=== PATIENT | female | born 1990 | race Caucasian/White ===

== ENCOUNTER 2019-10-12 16:56 | Emergency (ER) | payer BC, SELFPAY ==
[2019-10-12 17:10] VITALS: BP 124/78; PULSE 132; RESP 18; TEMP 36.9; O2SAT 100
--- NOTE | 2019-10-12 17:26 | ED.EAR ---
HPI - Ear Problem General Chief complaint: Ear Stated complaint: Possibe ear infection Time Seen by Provider: 10/12/19 17:14 Source: patient and RN notes reviewed Mode of arrival: ambulatory Limitations: no limitations History of Present Illness HPI Narrative: Patient presents today complaining of severe left ear pain since 09/20/2019. She reports severe pressure, a pop, and clear drainage. Reports the drainage is now green. She also reports a headache and some dizziness. She called her PCP and discuss symptoms. States she was told that her symptoms are likely due to allergies or her multiple sclerosis and she was told to use a steroid nasal spray. They did not send in a prescription for this, and patient did not purchase it [id number]. Reports history of frequent otitis media. She has been taking Excedrin and Tylenol without relief. She currently rates her pain 4/10. Denies cough, fever, congestion, rhinorrhea, sore throat. MD Complaint: ear pain Related Data Allergies Allergy/AdvReac Type Severity Reaction Status Date / Time pineapple Allergy Intermediate Swelling Verified 04/23/19 21:58 ceftriaxone Allergy Unknown Rash Verified 10/12/19 17:15 Cephalosporins Allergy Unknown Rash Verified 10/12/19 17:15 codeine Allergy Unknown Rash Verified 10/12/19 17:15 morphine Allergy Unknown Rash Verified 10/12/19 17:15 shellfish derived Allergy Unknown Rash Verified 10/12/19 17:15 Sulfa (Sulfonamide Allergy Unknown Rash Verified 10/12/19 17:15 Antibiotics) CEFTRIAXONE SODIUM Allergy Mild Rash Uncoded 10/12/19 17:15 SHELLFISH Allergy Unknown RASH Uncoded 04/23/19 21:58 Review of Systems Review of Systems: Narrative: CONSTITUTIONAL: Denies body aches, fever, chills, or sweats. EYES: Denies visual changes, redness, or discharge. ENT: Denies rhinorrhea, congestion, sore throat. + Left ear pain and drainage CARDIOVASCULAR: Denies chest pain, palpitations, or edema. RESPIRATORY: Denies cough or dyspnea. GASTROINTESTINAL: Denies abdominal pain, nausea, vomiting, or diarrhea. GENITOURINARY: Denies dysuria or hematuria. SKIN: Denies rash, itching, or wounds. MUSCULOSKELETAL: Denies back pain, joint pain, or myalgia. NEUROLOGIC: Denies numbness, tingling, or weakness.+ Headache, dizziness PSYCH: Denies depression or anxiety. [facility] Past Medical History Medical History (Updated 10/12/19 @ 17:34 by Anna Perrin, SALES NEG[employer]IATOR, ) Multiple sclerosis Social History Social History Smoking status: Never smoker Alcohol intake: never Comments At time of signature, I have reviewed and agree with nursing past medical, surgical, social and family history unless otherwise noted. Please see nursing chart for further information. There is no relevant family history pertinent to the presenting complaint Exam Narrative: Exam Narrative: GENERAL: Well-appearing, well-nourished, and in no acute distress. HEAD: Normocephalic, atraumatic. EYES: EOMI. No redness or drainage. Conjunctivae normal. ENT: Mucous membranes pink and moist. Nares clear. No rhinorrhea. TMs normal bilaterally with bilateral clear fluid behind the TM. No evidence of rupture. No active drainage. Throat normal. Uvula midline. NECK: Normal AROM. Supple. No lymphadenopathy. CHEST: No respiratory distress. Clear to auscultation. HEART: Regular rate and rhythm. No murmur appreciated. Normal peripheral pulses. EXTREMITIES: Normal range of motion. No edema. SKIN: Warm, dry, no rash. NEURO: No focal deficits. Alert and oriented x3. Gait steady. PSYCH: Normal affect. No signs of depression or anxiety. Course Vital Signs Vital signs: Vital Signs Temperature 98.4 F 10/12/19 17:10 Pulse Rate 132 H 10/12/19 17:10 Respiratory Rate 18 10/12/19 17:10 Blood Pressure 124/78 10/12/19 17:10 Pulse Oximetry 100 10/12/19 17:10 Temperature 98.4 F 10/12/19 17:10 Pulse Rate 132 H 10/12/19 17:10 Respiratory Rate 18 10/12/19 17:10 Blood Pressure 124/
== END 2019-10-12 17:29 | disposition home or self-care (01) ==
PROVIDERS: Emergency Provider Nurse Practitioner; PCP Internal Medicine
DX: H69.93 Unspecified Eustachian tube disorder, bilateral (principal); G35 Multiple sclerosis; J45.909 Unspecified asthma, uncomplicated
CPT/HCPCS: 99213; G0463

== ENCOUNTER 2020-05-12 10:01 | Emergency (ER) | payer BC, SELFPAY ==
[2020-05-12 10:09] VITALS: BP 127/61; PULSE 81; RESP 16; TEMP 37.2; O2SAT 99
--- NOTE | 2020-05-12 10:34 | ED.EAR ---
HPI - Ear Problem General Chief complaint: Ear Stated complaint: Ear Pain Time Seen by Provider: 05/12/20 10:24 Source: patient and RN notes reviewed Mode of arrival: ambulatory Limitations: no limitations History of Present Illness HPI Narrative: Patient presents today complaining of left ear pain x1 week. States that she started with bilateral ear pain, but her right ear pain resolved and only the left ear pain remains. She does report some mild decreased hearing, but denies drainage. She denies any additional symptoms. Currently rates her pain 10 and has been taking Tylenol without relief. She has also tried decongestant and Flonase without relief. MD Complaint: ear pain and decreased hearing Related Data Allergies Allergy/AdvReac Type Severity Reaction Status Date / Time pineapple Allergy Intermediate Swelling Verified 04/23/19 21:58 ceftriaxone Allergy Unknown Rash Verified 10/12/19 17:15 Cephalosporins Allergy Unknown Rash Verified 10/12/19 17:15 codeine Allergy Unknown Hallucinati Verified 05/12/20 10:18 ng morphine Allergy Unknown Hallucinati Verified 05/12/20 10:18 ng shellfish derived Allergy Unknown Rash Verified 10/12/19 17:15 Sulfa (Sulfonamide Allergy Unknown Rash Verified 10/12/19 17:15 Antibiotics) CEFTRIAXONE SODIUM Allergy Mild Rash Uncoded 10/12/19 17:15 SHELLFISH Allergy Unknown RASH Uncoded 04/23/19 21:58 Review of Systems Review of Systems: Narrative: CONSTITUTIONAL: Denies body aches, fever, chills, or sweats. EYES: Denies visual changes, redness, or discharge. ENT: Denies rhinorrhea, congestion, sore throat. + Left ear pain CARDIOVASCULAR: Denies chest pain, palpitations, or edema. RESPIRATORY: Denies cough or dyspnea. GASTROINTESTINAL: Denies abdominal pain, nausea, vomiting, or diarrhea. GENITOURINARY: Denies dysuria or hematuria. SKIN: Denies rash, itching, or wounds. MUSCULOSKELETAL: Denies back pain, joint pain, or myalgia. NEUROLOGIC: Denies headache, numbness, tingling, or weakness. PSYCH: Denies depression or anxiety. [facility] Past Medical History Medical History (Updated 05/12/20 @ 10:38 by Anna Perrin, [employer], [place]) Multiple sclerosis Social History Social History Smoking status: Never smoker Alcohol intake: never Comments At time of signature, I have reviewed and agree with nursing past medical, surgical, social and family history unless otherwise noted. Please see nursing chart for further information. There is no relevant family history pertinent to the presenting complaint Exam Narrative: Exam Narrative: GENERAL: Well-appearing, well-nourished, and in no acute distress. HEAD: Normocephalic, atraumatic. EYES: EOMI. No redness or drainage. Conjunctivae normal. ENT: Mucous membranes pink and moist. Nares clear. No rhinorrhea. Bilateral TMs are injected and bulging with purulent material. throat normal. Uvula midline. NECK: Normal AROM. Supple. No lymphadenopathy. CHEST: No respiratory distress. Clear to auscultation. HEART: Regular rate and rhythm. No murmur appreciated. Normal peripheral pulses. MUSCULOSKELETAL: No bony tenderness. EXTREMITIES: Normal range of motion. No edema. SKIN: Warm, dry, no rash. Capillary refill normal. Normal skin turgor. NEURO: No focal deficits. Alert and oriented x3. Gait steady. PSYCH: Normal affect. No signs of depression or anxiety. Course Vital Signs Vital signs: Vital Signs Pulse Rate 81 05/12/20 10:09 Respiratory Rate 16 05/12/20 10:09 Blood Pressure 127/61 05/12/20 10:09 Pulse Oximetry 99 05/12/20 10:09 Pulse Rate 81 05/12/20 10:09 Respiratory Rate 16 05/12/20 10:09 Blood Pressure 127/61 05/12/20 10:09 Pulse Oximetry 99 05/12/20 10:09 Reviewed. Pt has been instructed to follow up with her PCP regarding her elevated blood pressure today. Medical Decision Making Differential Diagnosis Differential Diagnosis: Otitis media, otitis externa, ruptured TM, serous otitis, eu
== END 2020-05-12 10:40 | disposition home or self-care (01) ==
PROVIDERS: Emergency Provider Nurse Practitioner; PCP Internal Medicine
DX: H66.93 Otitis media, unspecified, bilateral (principal); G35 Multiple sclerosis
CPT/HCPCS: 99213; G0463

== ENCOUNTER 2020-10-11 08:29 | Outpatient (CLI) | payer BC, SELFPAY ==
--- NOTE | ~2020-10-11 | CT_ITS ---
EXAMINATION: CT pelvis wo con DATE: 10/11/2020 08:44 INDICATION: Coccygeal fracture TECHNIQUE: High resolution computed tomography (CT) of the pelvis was performed without intravenous c ontrast. Additional sagittal and coronal reconstructions were performed. Automated exposure control a nd iterative reconstruction technique were employed. The dose-length product was 515.31 mGy-cm. COMPARISON: 07/06/2018 FINDINGS: Small fat-containing umbilical hernia. Visualized portions of the bowels including the appendix are n ormal. Partially decompressed bladder, anteverted uterus and bilateral adnexa are unremarkable. No fr ee intraperitoneal gas or fluid in the pelvis. No pathologically enlarged pelvic or inguinal lymphade nopathy. Moderate L5-S1 disc height loss with likely central disc extrusion. Sacrum and coccyx are no rmal with no fracture. IMPRESSION: 1. Lumbosacral spondylosis with moderate disc L5-S1 disc height loss with likely disc extrusion. Norm al sacrum and coccyx. Reviewed, dictated and finalized at location A. IMPRESSION: 1. Lumbosacral spondylosis with moderate disc L5-S1 disc height loss with likel y disc extrusion. Normal sacrum and coccyx.
== END 2020-10-11 08:30 | disposition home or self-care (01) ==
PROVIDERS: PCP Internal Medicine; Visit Provider Nurse Practitioner
DX: S32.2XXA Fracture of coccyx, initial encounter for closed fracture (principal); M47.817 Spondylosis without myelopathy or radiculopathy, lumbosacral region; K42.9 Umbilical hernia without obstruction or gangrene
CPT/HCPCS: 72192

== ENCOUNTER 2021-02-25 02:42 | Emergency (ER) | payer BC, SELFPAY ==
--- NOTE | ~2021-02-25 | CT_ITS ---
EXAMINATION: CT abdomen pelvis wo con DATE: 02/25/2021 04:07 INDICATION: Left flank and left lower quadrant pain TECHNIQUE: Computed tomography (CT) of the abdomen and pelvis was performed without intravenous contr ast. The dose-length product was 1328.38 mGy-cm. Automated exposure control and iterative reconstruct ion technique were employed. COMPARISON: CT dated 10/11/2020 FINDINGS: Lung bases are unremarkable. Heart size normal. No significant pleural or pericardial effus ion. No vascular abnormality. No lymphadenopathy. The liver, spleen, pancreas, adrenal glands and kidneys are unremarkable. Gallbladder is present. Sma ll fat-containing umbilical hernia. No free air or free fluid. Nonobstructive bowel gas pattern. No a cute osseous abnormality. IMPRESSION: 1. No acute abdominal abnormality. Reviewed, dictated and finalized at location A.
[2021-02-25 02:49] VITALS: BP 123/71; PULSE 80; RESP 18; TEMP 36.4; O2SAT 100
[2021-02-25 03:15] LABS: Basophils Percent Auto 0.3 % (0.2-1.2); Eosinophils Percent Auto 0.4 % (0-4.4); Hematocrit 37.8 % (37.0-47.0); Hemoglobin 12.7 g/dL (12.0-15.0); Immature Granulocyte Absolute 0.02 K/mm3 (0.00-0.031); Immature Granulocyte Percent A 0.2 % (0-0.5); Lymphocytes Absolute Auto 2.98 K/mm3 (0.9-3.2); Lymphocytes Percent Auto 32.5 % (18.3-44.2); Mean Corpuscular HGB Conc 33.6 g/dl (32-36); Mean Corpuscular Hemoglobin 28.7 pg (26-34); Mean Corpuscular Volume 85.5 fl (80-100); Mean Platelet Volume 9.9 fl (7.4-10.4); Monocytes Absolute Auto 0.6 K/mm3 (0.1-0.6); Neutrophils Absolute Auto 5.5 K/mm3 (1.3-6.7); Neutrophils Percent Auto 60.6 % (45.5-73.1); Platelet Count Result 274 k/mm3 (150-375); Red Blood Count 4.42 M/mm3 (4.2-5.4); Red Cell Distribution Width 12.4 % (11.5-14.5); White Blood Count 9.2 K/mm3 (4.5-10.0)
[2021-02-25 03:25] LABS: Alanine Aminotransferase 21 U/L (4-35); Albumin Level 3.9 g/dL (3.5-5.1); Alkaline Phosphatase 58 U/L (38-126); Anion Gap 9 mmol/L (8-16); Aspartate Amino Transferase 24 U/L (14-36); Bilirubin,Total 0.2 mg/dL (0.2-1.3); Blood Urea Nitrogen 13 mg/dL (7-17); Calcium 9.4 mg/dL (8.4-10.2); Carbon Dioxide 24 mmol/L (22-30); Chloride 102 mmol/L (98-107); Estimated CRCL calculation 102 ml/min; Estimated Glomerular Filt Rate > 60; Glucose 96 mg/dL (65-110); Lipase 94 U/L (23-300); Potassium 3.7 mmol/L (3.4-5.0); Sodium 135 mmol/L (137-145)
--- NOTE | 2021-02-25 03:33 | PC.NURSE ---
pt unable to urinate at this time.
--- NOTE | 2021-02-25 03:38 | ED.ABDPAIN ---
HPI - Abdominal Pain History of Present Illness HPI narrative: Moderate left flank pain radiating to the periumbilical region. Started a few hours ago. Associated with nausea. Slightly improved in position. Related Data Allergies Allergy/AdvReac Type Severity Reaction Status Date / Time pineapple Allergy Intermediate Swelling Verified 04/23/19 21:58 ceftriaxone Allergy Unknown Rash Verified 10/12/19 17:15 Cephalosporins Allergy Unknown Rash Verified 10/12/19 17:15 codeine Allergy Unknown Hallucinati Verified 05/12/20 10:18 ng morphine Allergy Unknown Hallucinati Verified 05/12/20 10:18 ng shellfish derived Allergy Unknown Rash Verified 10/12/19 17:15 Sulfa (Sulfonamide Allergy Unknown Rash Verified 10/12/19 17:15 Antibiotics) CEFTRIAXONE SODIUM Allergy Mild Rash Uncoded 10/12/19 17:15 SHELLFISH Allergy Unknown RASH Uncoded 04/23/19 21:58 Review of Systems Review of Systems: All systems reviewed & are unremarkable except as noted in HPI and below Constitutional: Constitutional: Denies fever(s) ENT: Denies dizziness Cardiovascular: Cardiovascular: Denies chest pain Respiratory: Respiratory: Denies dyspnea Gastrointestinal: Gastrointestinal: Reports as per HPI Genitourinary: Genitourinary: Reports no additional female genitourinary complaints Neurologic: Denies dizziness and Denies weakness [facility] Past Medical History Medical History Frequent headaches Low back pain Multiple sclerosis Surgical History Surgical History H/O tubal ligation Family History Family History Father Depression Anxiety Alcohol abuse Mother Cancer Anxiety Depression Sibling Alcohol abuse Grandparent Alcohol abuse Cancer Diabetes mellitus Social History Social History Smoking status: Current every day smoker Tobacco type: e-cigarettes/vaping Alcohol intake: never Exam Const: General: no acute distress and alert Orientation/consciousness: patient oriented x3 Other: diaphoretic HENMT: Head: normal to inspection Neck: Neck: normal visual inspection Resp: Effort & Inspection: normal respiratory effort Auscultation: clear to auscultation bilaterally, no rales, no rhonchi and no wheezes Cardio: Jugular venous distension: no JVD Rate: regular rate Rhythm: regular rhythm Heart sounds: no murmurs GI: Inspection: non-distended GI Palp: Yes Soft to palpation and Yes Tenderness to palpation present (GI) (diffuse) : General: Yes CVA tenderness on the left Skin: General skin exam: normal color Neuro: General: patient oriented x3 and moves all extremities Speech: normal speech Gait exam (Neuro): Normal gait present Extrem: General: no edema Psych: Appearance: well kempt Affect: normal affect Course Vital Signs Vital signs: Vital Signs Temperature 36.4 C 02/25/21 02:49 Pulse Rate 80 02/25/21 02:49 Respiratory Rate 18 02/25/21 02:49 Blood Pressure 123/71 02/25/21 02:49 Pulse Oximetry 100 02/25/21 02:49 Temperature 36.4 C 02/25/21 02:49 Pulse Rate 80 02/25/21 02:49 Respiratory Rate 18 02/25/21 02:49 Blood Pressure 123/71 02/25/21 02:49 Pulse Oximetry 100 02/25/21 02:49 MDM - Abdominal Pain Differential Diagnosis Differential diagnosis: Likely calculus of kidney, constipation, diverticulitis, gastroenteritis and pancreatitis Medical Records Attestation: I reviewed the patient's medical records. Lab Data Attestation: I reviewed the patient's lab results. Result diagrams: 02/25/21 03:04 02/25/21 03:04 Labs: Lab Results 02/25/21 02/25/21 02/25/21 Range/Units 03:04 03:04 03:55 WBC 9.2 (4.5-10.0) K/mm3 RBC 4.42 (4.2-5.4) M/mm3 Hgb 12.7 (12.0-15.0) g/dL Hct 37.8
[2021-02-25] MEDS: ONDANSETRON INJ 4 MG/2 ML VIAL IV PUSH (03:49)
[2021-02-25 04:07] LABS: Add Urine Microscopic? NO; Appearance Urine Clear (Clear); Bilirubin Urine Negative (Negative); Blood Urine Negative (Negative); Color Urine Straw (Yellow); Glucose Urine UA Negative (Negative); Ketones Urine Negative (Negative); Leukocyte Esterase Ur Negative LEU/UL (Negative); Nitrate Urine Negative (Negative); Protein Urine Negative (Negative); Specific Grav Ur 1.012 (1.001-1.035); Urobilinogen Urine Negative mg/dL (<2.0)
--- NOTE | 2021-02-25 04:58 | PC.NURSE ---
pt states she is in pain, but is refusing any type of pain medication and is requesting nausea medicine only.
--- NOTE | 2021-02-25 05:40 | PC.NURSE ---
after pt signed discharge paperwork, pt slammed clip board and pen on the bed. after taking IV out pt immediately started walking out of the room. I asked pt if she wanted discharge paperwork and she said no as she kept walking. was unable to obtain discharge vitals.
== END 2021-02-25 05:32 | disposition home or self-care (01) ==
PROVIDERS: Emergency Provider Emergency Medicine; PCP Internal Medicine
DX: R10.9 Unspecified abdominal pain (principal); R11.0 Nausea; G35 Multiple sclerosis; F17.290 Nicotine dependence, other tobacco product, uncomplicated
CPT/HCPCS: 36415; 74176; 80053; 81003; 83690; 85025; 96374; 99284; J2405

== ENCOUNTER 2021-02-28 11:00 | Outpatient (CLI) | payer BC, SELFPAY ==
--- NOTE | ~2021-02-28 | CT_ITS ---
EXAMINATION: CT abdomen pelvis w con INDICATION: Left lower quadrant pain and nausea TECHNIQUE: Computed tomographic images of the abdomen and pelvis were obtained after the administrati on of 100 cc of Omnipaque 350 intravenous contrast. The dose-length product (DLP) was 1085.77 mGy-cm. Automated exposure control and iterative reconstruction technique were employed. COMPARISON: 02/25/2021 FINDINGS: The lung bases are clear. The heart size is normal. The liver, spleen, pancreas, gallbladde r, and adrenal glands are normal. The right kidney is unremarkable. A 5 mm hypoattenuating lesion of the left kidney is too small to characterize but likely represents a cyst. No pathologically enlarged abdominal or pelvic lymph nodes are identified. The appendix is normal There is no free intraperiton eal gas or evidence of bowel obstruction. There is moderate lower lumbar spondylosis. Fat-containing umbilical hernia is noted. IMPRESSION: 1. No CT correlate for the patient's symptoms. Reviewed, dictated and finalized at location B.
--- NOTE | ~2021-02-28 | US_ITS ---
EXAMINATION: US pelvic complete w TV DATE: 02/28/2021 13:52 INDICATION: Unspecified abdominal pain. TECHNIQUE: Multiple transabdominal and transvaginal sonographic images of the pelvis were obtained. COMPARISON: CT abdomen and pelvis 02/28/2021 FINDINGS: TRANSABDOMINAL ULTRASOUND: The uterus measures 9.0 x 4.9 x 5.0 cm. There is trace physiologic free fluid in the pelvis. TRANSVAGINAL ULTRASOUND: The endometrial complex measures 12 mm in thickness. The right ovary 2.5 x 2.0 x 2.1 cm. The left ova ry 3.6 x 3.0 x 2.7 cm. There is normal vascular flow in the ovaries. IMPRESSION: 1. Normal pelvis. Reviewed, dictated and finalized at location A. IMPRESSION: 1. Normal pelvis.
== END 2021-02-28 11:01 | disposition home or self-care (01) ==
LOC: ANHIMG 11:07
PROVIDERS: PCP Internal Medicine; Visit Provider Internal Medicine
DX: R10.9 Unspecified abdominal pain (principal)
CPT/HCPCS: 74177; 76830; 76856; Q9967

== ENCOUNTER 2021-07-12 20:28 | Emergency (ER) | payer BC, SELFPAY ==
--- NOTE | ~2021-07-12 | XR_ITS ---
EXAMINATION: XR hip LT 2V w AP pelvis DATE: 07/13/2021 00:46 INDICATION: Left hip pain. TECHNIQUE: An anteroposterior pelvis and 2 views of left hip were obtained. COMPARISON: None. FINDINGS: Bone alignment is normal. No fracture. The hip joint spaces are normal. There are tiny calc ifications at the lateral rim of left acetabulum. IMPRESSION: 1. No etiology for left hip pain. Reviewed, dictated and finalized at location A. [employer]
[2021-07-12 20:40] VITALS: BP 115/77; PULSE 92; RESP 18; TEMP 36.6; O2SAT 99
--- NOTE | 2021-07-12 23:13 | PC.NURSE ---
Pt states when she used the bathroom she noticed a dark red clot states her last period was 12 days ago. no other bleeding other than clot.
[2021-07-13 00:27] VITALS: BP 120/64; PULSE 88; RESP 16; O2SAT 100
--- NOTE | 2021-07-13 00:31 | ED.LOWEXIN ---
HPI - Extremity Injury (Lower) General Chief Complaint: Back Pain/Injury Stated Complaint: back, hip, groin pain Time Seen by Provider: 07/13/21 00:30 Source: patient Mode of arrival: ambulatory Limitations: no limitations History of Present Illness HPI Narrative: Patient is a 31-year-old female complaining of left hip pain and left lower back pain after she bent over and felt something pop in her left hip. Patient states her pain is an 8 out of 10, aching, worse with palpation and movement. Patient states that she is unable to bear weight due to the pain. Patient denies any weakness, numbness or incontinence. Denies any other pain or injuries. Patient states that she goes to pain management clinic due to her chronic low back pain, I have degenerative disc disease . Related Data Home Medications Medication Instructions Recorded Confirmed No Home Medications 07/12/21 Allergies Allergy/AdvReac Type Severity Reaction Status Date / Time pineapple Allergy Intermediate Swelling Verified 07/13/21 00:29 ceftriaxone Allergy Unknown Rash Verified 07/13/21 00:29 Cephalosporins Allergy Unknown Rash Verified 07/13/21 00:29 codeine Allergy Unknown Hallucinati Verified 07/13/21 00:29 ng morphine Allergy Unknown Hallucinati Verified 07/13/21 00:29 ng shellfish derived Allergy Unknown Rash Verified 07/13/21 00:29 Sulfa (Sulfonamide Allergy Unknown Rash Verified 07/13/21 00:29 Antibiotics) CEFTRIAXONE SODIUM Allergy Mild Rash Uncoded 07/13/21 00:29 SHELLFISH Allergy Unknown RASH Uncoded 12 00:29 Review of Systems Review of Systems: All systems reviewed & are unremarkable except as noted in HPI and below Constitutional: Constitutional: Denies body ache(s), Denies chills, Denies excessive sweating, Denies fatigue, Denies fever(s), Denies headache(s), Denies lethargy, Denies malaise, Denies weakness and Denies weight loss Eyes: Eyes: Denies blurry vision, Denies change in vision and Denies loss of vision ENT: Denies dizziness, Denies ear discharge, Denies headache(s), Denies lip swelling, Denies epistaxis, Denies nasal congestion, Denies neck pain, Denies throat swelling and Denies tongue swelling Cardiovascular: Cardiovascular: Denies chest pain, Denies chest pain at rest, Denies chest pain with activity, Denies diaphoresis, Denies rapid heart rate, Denies edema, Denies irregular heart rhythm, Denies lightheadedness, Denies palpitations, Denies dyspnea and Denies dyspnea on exertion Respiratory: Respiratory: Denies chest congestion, Denies cough, Denies hemoptysis, Denies dyspnea and Denies dyspnea on exertion Gastrointestinal: Gastrointestinal: Denies abdominal pain, Denies melena, Denies hematochezia, Denies diarrhea, Denies nausea, Denies vomiting and Denies hematemesis Musculoskeletal: Musculoskeletal: Denies deformity, Denies joint swelling, Denies neck pain and Denies numbness Neurologic: Denies Abnormal speech present, Denies confusion, Denies dizziness, Denies headache(s), Denies focal weakness, Denies loss of vision, Denies numbness, Denies Other visual disturbances, Denies Sensory deficit (Neuro) and Denies weakness Psychiatric: Psychiatric: Denies confusion, Denies depression, Denies auditory hallucinations, Denies homicidal ideation and Denies suicidal ideation Endocrine: Endocrine: Denies cold intolerance, Denies excessive sweating, Denies fatigue, Denies heat intolerance and Denies palpitations Hematologic/Lymphatic: Hematologic/Lymphatic: Denies easy bleeding and Denies easy bruising Allergic/Immunologic: Allergic/Immunologic: Denies lip swelling, Denies throat swelling and Denies tongue swelling PMFSH Past Medical History Medical History Frequent headaches Low back pain Multiple sclerosis Surgical History Surgical History H/O tubal ligation Family History Family History (Reviewed
[2021-07-13] MEDS: KETOROLAC (*BKC) 60 MG/2 ML VIAL IM (01:08)
[2021-07-13] MEDS: CYCLOBENZAPRINE HCL 10 MG TABLET PO (01:08)
[2021-07-13 01:11] VITALS: BP 107/81; PULSE 71; RESP 16; O2SAT 100
[2021-07-13 01:53] VITALS: BP 113/84; PULSE 66; RESP 16; O2SAT 100
== END 2021-07-13 02:00 | disposition home or self-care (01) ==
PROVIDERS: Emergency Provider Emergency Medicine; PCP Internal Medicine
DX: S76.012A Strain of muscle, fascia and tendon of left hip, initial encounter (principal); G35 Multiple sclerosis; F17.290 Nicotine dependence, other tobacco product, uncomplicated; X50.9XXA Other and unspecified overexertion or strenuous movements or postures, initial encounter
CPT/HCPCS: 73502; 96372; 99283; A9270; J1885

== ENCOUNTER 2021-07-15 10:06 | Emergency (ER) | payer BC, SELFPAY ==
--- NOTE | ~2021-07-15 | XR_ITS ---
XR lumbar spine 2-3V DATE: 07/15/2021 13:45 INDICATION: Low back pain, left leg numbness. Pulling injury 2 days ago. TECHNIQUE: AP, lateral, coned lateral lumbosacral views COMPARISON: None FINDINGS: There is normal alignment of lumbar spine. No fracture or bone destruction or spondylolisth esis. The lumbar pedicles are intact. There is moderately severe degenerative disc disease at L5-S1. Lumbar interspaces appear well preserv ed. The sacroiliac joints are normal. IMPRESSION: Moderately severe degenerative disc disease at L5-S1 Reviewed, dictated and finalized at location A. ON MOLDING MACHINE OPERATOR
--- NOTE | ~2021-07-15 | CT_ITS ---
CT hip LT wo con DATE: 07/15/2021 13:53 INDICATION: Left hip pain TECHNIQUE: Axial images and sagittal and coronal reconstructions of the left hip. Exam dose: 408.42 mGy-cm total exam DLP. COMPARISON: None FINDINGS: No fracture or dislocation of the left hip. No evidence of avascular necrosis or bone destr uction. IMPRESSION: No significant abnormality Reviewed, dictated and finalized at Location A. Reviewed, dictated and finalized at location A. S ADVISORY MANAGER IMPRESSION: No significant abnormality
--- NOTE | ~2021-07-15 | CT_ITS ---
EXAMINATION: CT pelvis wo con DATE: 07/15/2021 13:54 INDICATION: Numbness radiating down left leg TECHNIQUE: Computed tomography (CT) of the pelvis was performed without intravenous contrast. Automat ed exposure control and iterative reconstruction technique were employed. Exam dose: 628.55 mGy-cm t otal exam DLP. COMPARISON: None FINDINGS: No pelvic fracture or bone destruction. There is moderately severe degenerative disease at L5-S1. There is evidence of herniated nucleus pulposus on the mid to left at L5-S1, compressing and posterio rly displacing left S1 nerve root. The uterus, adnexal areas and urinary bladder are unremarkable. Small fat-containing umbilical hernia. IMPRESSION: Mid to left-sided herniated nucleus pulposus at L5-S1, with impinging and posteriorly di splacing left S1 nerve root Reviewed, dictated and finalized at Location [facility]. Reviewed, dictated and finalized at location A. FORCE SERVICES REPRESENTATIVE IMPRESSION: Mid to left-sided herniated nucleus pulposus at L5-S1, with imping ing and posteriorly displacing left S1 nerve root
[2021-07-15 10:09] VITALS: BP 136/81; PULSE 88; RESP 18; TEMP 36.3; O2SAT 100
--- NOTE | 2021-07-15 12:52 | ED.GENADULT ---
HPI - General Adult General Chief complaint: Extremity Injury, Lower Stated complaint: hip pain, prev dislocation Time Seen by Provider: 07/15/21 11:13 Source: patient Mode of arrival: ambulatory Limitations: no limitations History of Present Illness HPI narrative: Patient presents for evaluation of low back pain and left hip pain. She was evaluated here on 07/13/2021 after she stepped on a utensil at home and felt a pop in her left hip. She had x-ray of her pelvis and left hip which were negative. She was given Toradol and Flexeril in the emergency department. She states that since that time she has had persistent pain. She states the pain in her low back and hip are 8 of 10 in severity but increases to 15 with certain movements. She reports numbness in medial aspect of left knee, posterior left calf and throughout the left foot. Weightbearing makes her feel like the whole leg is going to crumble . She denies any saddle anesthesia, bladder/bowel incontinence. She has been taking ibuprofen and Tylenol with minimal improvement in her symptoms thereafter. LMP 1.5 weeks ago. History of tubal ligation. States she has an underlying history of multiple sclerosis but is not currently on any medications. Related Data Allergies Allergy/AdvReac Type Severity Reaction Status Date / Time pineapple Allergy Intermediate Swelling Verified 07/13/21 00:29 ceftriaxone Allergy Unknown Rash Verified 07/13/21 00:29 Cephalosporins Allergy Unknown Rash Verified 07/13/21 00:29 codeine Allergy Unknown Hallucinati Verified 07/13/21 00:29 ng morphine Allergy Unknown Hallucinati Verified 07/13/21 00:29 ng shellfish derived Allergy Unknown Rash Verified 07/13/21 00:29 Sulfa (Sulfonamide Allergy Unknown Rash Verified 07/13/21 00:29 Antibiotics) CEFTRIAXONE SODIUM Allergy Mild Rash Uncoded 07/13/21 00:29 SHELLFISH Allergy Unknown RASH Uncoded 07/13/21 00:29 Review of Systems Review of Systems: CONSTITUTIONAL: Denies fever, chills, or sweats. EYES: Denies visual changes, redness, or discharge. ENT: Denies rhinorrhea, congestion, sore throat, or otalgia. CARDIOVASCULAR: Denies chest pain, palpitations, or edema. RESPIRATORY: Denies cough or dyspnea. GASTROINTESTINAL: Denies abdominal pain, nausea, vomiting, or diarrhea. GENITOURINARY: Denies dysuria or hematuria. SKIN: Denies rash or itching. MUSCULOSKELETAL: Reports low back pain and left hip pain NEUROLOGIC: Reports numbness in medial aspect of left knee, posterior aspect of left calf and throughout the left foot. Denies headache, numbness, dizziness, or weakness. PSYCHIATRIC: Denies anxiety or depression. [facility] Past Medical History Medical History Frequent headaches Low back pain Multiple sclerosis Surgical History Surgical History H/O tubal ligation Family History Family History Father Depression Anxiety Alcohol abuse Mother Cancer Anxiety Depression Sibling Alcohol abuse Grandparent Alcohol abuse Cancer Diabetes mellitus Social History Social History Smoking status: Current every day smoker Tobacco type: e-cigarettes/vaping Alcohol intake: never Substance use: never Living arrangements: with family Gender identity (if verbalized by the patient): Female Sexual Orientation (if Verbalized by the Patient): Straight or Heterosexual Spiritual care concerns: No Exam Narrative: GENERAL: Well-appearing, well-nourished, and in no acute distress. HEAD: Normocephalic, atraumatic. EYES: PERRLA and EOMI. ENT: Nares clear, no rhinorrhea or epistaxis. Mucous membranes moist. Oropharynx without tonsillar hypertrophy exudate or other lesions. Bilateral TMs pearly boyd nonbulging NECK: Supple. No adenopathy or masses. No c
[2021-07-15] MEDS: KETOROLAC (*BKC) 60 MG/2 ML VIAL IM (13:24)
[2021-07-15] MEDS: diazePAM (*CRX) 5 MG TABLET PO (13:24)
[2021-07-15 15:40] VITALS: BP 120/89; PULSE 90; RESP 16; O2SAT 98
== END 2021-07-15 15:40 | disposition home or self-care (01) ==
PROVIDERS: Emergency Provider Nurse Practitioner; PCP Internal Medicine
DX: M51.36 Other intervertebral disc degeneration, lumbar region (principal); M51.26 Other intervertebral disc displacement, lumbar region
CPT/HCPCS: 72100; 72192; 73700; 81025; 96372; 99284; A9270; J1100; J1885

== ENCOUNTER 2022-04-03 15:43 | Emergency (ER) | payer BC, SELFPAY ==
[2022-04-03] VITALS (11 sets, daily range): BP systolic 108–121; BP diastolic 63–83; PULSE 69–77; RESP 13–25; TEMP 36.8; O2SAT 96–100
--- NOTE | ~2022-04-03 | CT_ITS ---
EXAMINATION: CT brain wo con DATE: 04/03/2022 16:55 INDICATION: Seizure. TECHNIQUE: Computed tomography (CT) of the head was performed without intravenous contrast. The mA wa s adjusted according to patient size. Iterative reconstruction technique was employed. The dose-lengt h product was 681.00 mGy-cm. COMPARISON: Head CT 04/23/2019 FINDINGS: There is no intracranial hemorrhage, acute infarction, or abnormal intracranial mass lesion . The ventricles are normal in size. The orbits are normal. There is mild mucosal thickening in the p aranasal sinuses. The mastoid air cells are normal. IMPRESSION: 1. Normal brain. Reviewed, dictated and finalized at location A. IMPRESSION: 1. Normal brain.
--- NOTE | 2022-04-03 16:01 | ED.GENADULT ---
HPI - General Adult General Chief complaint: Unspecified Stated complaint: Possible Seizure One Hour Ago Time Seen by Provider: 04/03/22 16:01 Source: patient Mode of arrival: ambulatory Limitations: no limitations History of Present Illness HPI narrative: Patient is a 31 yo female with a history of multiple sclerosis presenting for evaluation of possible seizure like activity. Patient states she was laying down in her room when she began to hallucinate that her mother was speaking to her; she also endorses that she was able feel her mother. Pt also endorses a descending tingling sensation in both arms to bilateral hands, and then felt that her left temporal field of vision in her left eye disappeared. Pt was conscious for this episode but then reports a 10 minute inability to move. Pt is not entirely sure how long the episode lasted. Pt denies LOC. No tongue biting or urinary incontinence. She has a history of MS flare 6 weeks ago which is usually associated with unilateral weakness or numbness. Pt reports chronic numbness in her left lower extremity. Pt does not currently follow with a neurologist for her MS. Related Data Allergies Allergy/AdvReac Type Severity Reaction Status Date / Time pineapple Allergy Intermediate Swelling Verified 07/13/21 00:29 ceftriaxone Allergy Unknown Rash Verified 07/13/21 00:29 Cephalosporins Allergy Unknown Rash Verified 07/13/21 00:29 codeine Allergy Unknown Hallucinati Verified 07/13/21 00:29 ng morphine Allergy Unknown Hallucinati Verified 07/13/21 00:29 ng shellfish derived Allergy Unknown Rash Verified 07/13/21 00:29 Sulfa (Sulfonamide Allergy Unknown Rash Verified 07/13/21 00:29 Antibiotics) CEFTRIAXONE SODIUM Allergy Mild Rash Uncoded 07/13/21 00:29 SHELLFISH Allergy Unknown RASH Uncoded 07/13/21 00:29 Review of Systems Review of Systems: CONSTITUTIONAL: Denies fever, chills, or sweats. EYES: Denies current visual changes, redness, or discharge. ENT: Denies rhinorrhea, congestion, sore throat, or otalgia. CARDIOVASCULAR: Denies chest pain, palpitations, or edema. RESPIRATORY: Denies cough or dyspnea. GASTROINTESTINAL: Denies abdominal pain, nausea, vomiting, or diarrhea. GENITOURINARY: Denies dysuria or hematuria. SKIN: Denies rash or itching. MUSCULOSKELETAL: Denies back pain, joint pain, or myalgia. NEUROLOGIC: Denies current headache, numbness, or weakness. PENDING SALE TO [facility] Past Medical History Medical History Frequent headaches Low back pain Multiple sclerosis Surgical History Surgical History H/O tubal ligation Family History Family History Father Depression Anxiety Alcohol abuse Mother Cancer Anxiety Depression Sibling Alcohol abuse Grandparent Alcohol abuse Cancer Diabetes mellitus Social History Social History Smoking status: Current every day smoker Tobacco type: e-cigarettes/vaping Alcohol intake: never Substance use: never Gender identity (if verbalized by the patient): Female Sexual Orientation (if Verbalized by the Patient): Straight or Heterosexual Spiritual care concerns: No Exam Narrative: GENERAL: Awake, alert, conversant HEAD: Normocephalic, atraumatic. EYES: PERRLA and EOMI. ENT: Nares clear, no rhinorrhea or epistaxis. Mucous membranes moist. NECK: Supple. CHEST: No respiratory distress, breathing even and non labored HEART: Regular rate, sinus rhythm ABDOMEN:Non distended, non tender EXTREMITIES: Normal range of motion. No edema. SKIN: Warm, dry, no rash. NEURO:No focal deficits. Alert and oriented x3. Finger to nose intact bilaterally. EOMs intact without nystagmus. No facial droop/asymmetry noted bilaterally. Grimace intact. Intact sensation in face. Hearing intact bilaterally. Shoulder shr
--- NOTE | 2022-04-03 16:40 | ECG_ITS ---
Measurements Intervals [place] Rate: 69 P: 17 NV: 125 QRS: 21 QRSD: 88 T: 19 QT: 401 QTc: 432 Interpretive Statements SINUS RHYTHM BASELINE ARTIFACT- II, III, V1 NORMAL ECG NO PREVIOUS ECG AVAILABLE FOR COMPARISON Electronically Signed On 04-03-2022 21:49:11 CDT by Tyler Melgoza D.O.
[2022-04-03 17:20] LABS: Basophils Percent Auto 0.5 % (0.2-1.2); Eosinophils Absolute Auto 0.1 K/mm3 (0-0.3); Eosinophils Percent Auto 0.8 % (0-4.4); Hematocrit 41.9 % (37.0-47.0); Immature Granulocyte Absolute 0.02 K/mm3 (0.00-0.031); Immature Granulocyte Percent A 0.2 % (0-0.5); Lymphocytes Absolute Auto 2.35 K/mm3 (0.9-3.2); Lymphocytes Percent Auto 27.4 % (18.3-44.2); Mean Corpuscular HGB Conc 33.4 g/dl (32-36); Mean Corpuscular Volume 86.9 fl (80-100); Mean Platelet Volume 9.9 fl (7.4-10.4); Monocytes Absolute Auto 0.5 K/mm3 (0.1-0.6); Monocytes Percent Auto 6.3 % (2.6-8.5); Neutrophils Absolute Auto 5.6 K/mm3 (1.3-6.7); Neutrophils Percent Auto 64.8 % (45.5-73.1); Platelet Count Result 287 k/mm3 (150-375); Red Blood Count 4.82 M/mm3 (4.2-5.4); Red Cell Distribution Width 13.1 % (11.5-14.5); White Blood Count 8.6 K/mm3 (4.5-10.0)
[2022-04-03 17:25] LABS: Appearance Urine Clear (Clear); Bilirubin Urine Negative (Negative); Blood Urine Negative (Negative); Color Urine Yellow (Yellow); Glucose Urine UA Negative (Negative); Ketones Urine Negative (Negative); Leukocyte Esterase Ur Trace LEU/UL (Negative); Nitrate Urine Negative (Negative); Protein Urine Negative (Negative); Specific Grav Ur 1.015 (1.001-1.035); Urobilinogen Urine 0.2 mg/dL (<2.0)
[2022-04-03 17:27] LABS: Add Urine Microscopic? YES; Bacteria Urine Trace /hpf; Mucus Urine Rare /lpf; RBC Urine 0-2 /hpf (0-2); Squamous Epithelial Cell Urine Rare /hpf (Few); WBC Urine 0-3 /hpf
[2022-04-03 17:28] LABS: Lactic Acid Reflex 0.8 mmol/L (0.7-2.0)
[2022-04-03 17:31] LABS: Anion Gap 15 mmol/L (8-16); Blood Urea Nitrogen 10 mg/dL (7-17); Calcium 9.1 mg/dL (8.4-10.2); Carbon Dioxide 24 mmol/L (22-30); Chloride 105 mmol/L (98-107); Estimated CRCL calculation 117 ml/min; Estimated Glomerular Filt Rate > 60; Glucose 90 mg/dL (65-110); Sodium 144 mmol/L (137-145)
[2022-04-03 18:00] LABS: Procalcitonin 0.1 ng/mL
[2022-04-03 18:57] LABS: Amphetamine Screen Urine Negative (Negative); Barbiturate Screen Urine Negative (Negative); Benzodiazepines Screen Urine Negative (Negative); Cannabinoid Screen Urine Negative (Negative); Cocaine Screen Urine Negative (Negative); Methadone Screen Urine Negative (Negative); Opiate Screen Urine Negative (Negative); Phencyclidine Screen Urine Negative (Negative)
== END 2022-04-03 18:35 | disposition home or self-care (01) ==
PROVIDERS: Emergency Provider Emergency Medicine; PCP Internal Medicine
DX: R56.9 Unspecified convulsions (principal); G35 Multiple sclerosis; F17.290 Nicotine dependence, other tobacco product, uncomplicated
CPT/HCPCS: 36415; 70450; 80048; 80307; 81001; 81025; 83605; 84145; 85025; 93005; 99284

== ENCOUNTER 2023-05-15 21:57 | Emergency (ER) | payer OTHER, SELFPAY ==
--- NOTE | ~2023-05-15 | XR_ITS ---
EXAMINATION: XR chest 2V Exam Date/Time: 05/15/2023 22:10 CDT HISTORY: Rt sided chest pain, nausea, MS, smoker Comparison: 10/23/2017. RESULT: Lines, tubes, and devices: None. Lungs and pleura: Clear. Cardiomediastinal silhouette: Stable. Other: No acute osseous or upper abdominal finding. IMPRESSION: No acute cardiopulmonary process. Reviewed, dictated and finalized at location K.
--- NOTE | 2023-05-15 21:57 | ECG_ITS ---
Measurements Intervals [place] Rate: 80 P: 26 NC: 126 QRS: 50 QRSD: 88 T: 37 QT: 373 QTc: 431 Interpretive Statements SINUS RHYTHM COMPARED TO ECG 04/03/2022 17:03:31 NO SIGNIFICANT CHANGES Electronically Signed On 05-16-2023 12:56:00 CDT by Erin Gallardo M.D.
[2023-05-15 21:58] VITALS: BP 114/81; PULSE 87; RESP 20; TEMP 36.4; O2SAT 100
[2023-05-15 22:11] LABS: Basophils Percent Auto 0.2 % (0.2-1.2); Eosinophils Absolute Auto 0.1 K/mm3 (0-0.3); Eosinophils Percent Auto 0.7 % (0-4.4); Hematocrit 39.6 % (37.0-47.0); Hemoglobin 13.2 g/dL (12.0-15.0); Immature Granulocyte Absolute 0.05 K/mm3 (0.00-0.031); Immature Granulocyte Percent A 0.4 % (0-0.5); Lymphocytes Percent Auto 23.9 % (18.3-44.2); Mean Corpuscular HGB Conc 33.3 g/dl (32-36); Mean Corpuscular Hemoglobin 28.8 pg (26-34); Mean Corpuscular Volume 86.3 fl (80-100); Mean Platelet Volume 9.9 fl (7.4-10.4); Monocytes Absolute Auto 0.7 K/mm3 (0.1-0.6); Monocytes Percent Auto 5.3 % (2.6-8.5); Neutrophils Absolute Auto 9.3 K/mm3 (1.3-6.7); Neutrophils Percent Auto 69.5 % (45.5-73.1); Platelet Count Result 285 k/mm3 (150-375); Red Blood Count 4.59 M/mm3 (4.2-5.4); Red Cell Distribution Width 12.9 % (11.5-14.5); White Blood Count 13.4 K/mm3 (4.5-10.0)
[2023-05-15 22:20] LABS: Alanine Aminotransferase 23 U/L (6-35); Albumin Level 4.5 g/dL (3.5-5.1); Alkaline Phosphatase 66 U/L (38-126); Anion Gap 6 mmol/L (8-16); Aspartate Amino Transferase 23 U/L (14-36); Bilirubin,Total 0.5 mg/dL (0.2-1.3); Blood Urea Nitrogen 17 mg/dL (7-17); Calcium 9.4 mg/dL (8.4-10.2); Carbon Dioxide 28 mmol/L (22-30); Chloride 102 mmol/L (98-107); Estimated CRCL calculation 92 ml/min; Estimated Glomerular Filt Rate > 60; Glucose 95 mg/dL (65-110); Lipase 123 U/L (23-300); Potassium 3.6 mmol/L (3.4-5.0); Sodium 136 mmol/L (137-145)
[2023-05-15 22:22] LABS: Partial Thromboplastin Time 36.8 SECONDS (22.3-36.8)
[2023-05-15 22:32] LABS: Troponin I < 0.012 ng/mL (0.000-0.034)
[2023-05-15] MEDS: ASPIRIN 81 MG CHEWABLE TABLET 324 MG PO (23:24)
[2023-05-15 23:33] VITALS: BP 105/72; PULSE 82; RESP 19; O2SAT 97
[2023-05-15 23:34] VITALS: PULSE 88
[2023-05-16 00:44] VITALS: BP 124/77; PULSE 87; RESP 20; O2SAT 97
--- NOTE | 2023-05-16 00:49 | ED.CHESTPAIN ---
HPI - Chest Pain General Chief Complaint: Chest Pain Stated Complaint: chest pain Time Seen by Provider: 05/15/23 23:59 Source: patient Limitations: no limitations History of Present Illness HPI narrative: Patient is a 33-year-old female present to the emergency department complaining of chest pain. Patient states she first noticed the chest pain at approximately 7:30 PM gradually, underneath her right breast, sharp, nonradiating, denies history of this pain in the past, notes that it was constant upon onset and she was relaxing not doing anything when it started, notes that it is essentially gone away at this time however still present at a low level, has not noticed anything making it better, admits to being slightly worse when she lays down, admits to associated nausea without any vomiting. Patient denies history of blood clots or unilateral lower extremity swelling. Patient denies diarrhea, melena, abdominal pain, palpitations, numbness, weakness, sore throat, nasal congestion, recent injuries, recent strenuous activity, cough, rash, vaginal bleeding, dysuria, hematuria, urinary frequency, urinary urgency. Patient admits to history of MS and denies taking any medications for this. Patient admits to vaporizing nicotine and denies any tobacco use. Patient denies history of high cholesterol or high blood pressure. Related Data Allergies Allergy/AdvReac Type Severity Reaction Status Date / Time pineapple Allergy Intermediate Swelling Verified 05/15/23 22:01 ceftriaxone Allergy Unknown Rash Verified 05/15/23 22:01 Cephalosporins Allergy Unknown Rash Verified 05/15/23 22:01 codeine Allergy Unknown Hallucinati Verified 05/15/23 22:01 ng morphine Allergy Unknown Hallucinati Verified 05/15/23 22:01 ng shellfish derived Allergy Unknown Rash Verified 05/15/23 22:01 Sulfa (Sulfonamide Allergy Unknown Rash Verified 05/15/23 22:01 Antibiotics) CEFTRIAXONE SODIUM Allergy Mild Rash Uncoded 04/15/23 14:52 SHELLFISH Allergy Unknown RASH Uncoded 04/15/23 14:52 Review of Systems Review of Systems: A 10 system review of systems was completed on the patient and is negative except for what is stated in the HPI. Nursing and ancillary documentation was reviewed. [facility] Past Medical History Medical History (Updated 05/17/23 @ 00:00 by Background Daemon) Frequent headaches Low back pain Multiple sclerosis Surgical History Surgical History H/O tubal ligation Family History Family History Father Depression Anxiety Alcohol abuse Mother Cancer Anxiety Depression Sibling Alcohol abuse Grandparent Alcohol abuse Cancer Diabetes mellitus Social History Social History Smoking status: Current every day smoker Tobacco type: e-cigarettes/vaping Alcohol intake: never Substance use: never Lack of Transportation: No Lack of Food: Never True Current Housing: I Have Housing Concerned About Future Housing: No Difficulty Paying Gas/Electric Bills: No Difficulty Paying for Meds: No Currently Unemployed: No Education: High School Diploma/GED Difficulty w/ Childcare or Family Care: No Living arrangements: with family Gender identity (if verbalized by the patient): Female Sexual Orientation (if Verbalized by the Patient): Straight or Heterosexual Spiritual care concerns: No Comments At time of signature, I have reviewed and agree with nursing past medical, surgical, social and family history unless otherwise noted. Please see the nursing chart for further information. There is no relevant family history pertinent to the presenting complaint. Exam Narrative: CONST: No acute distress. Well nourished. HENMT: Head is normocephalic and atraumatic. Moist mucous membranes. No posterior oropharynx erythema. EYES: No conjunctival ict
[2023-05-16 01:22] LABS: Troponin I < 0.012 ng/mL (0.000-0.034)
[2023-05-16 02:43] VITALS: BP 107/68; PULSE 75; RESP 18; O2SAT 96
== END 2023-05-16 02:51 | disposition home or self-care (01) ==
PROVIDERS: Emergency Provider Student in an Organized Health Care Education/Training Program; PCP Internal Medicine
DX: R07.9 Chest pain, unspecified (principal); F17.290 Nicotine dependence, other tobacco product, uncomplicated; G35 Multiple sclerosis
CPT/HCPCS: 36415; 71046; 80053; 83690; 84484; 85025; 85610; 85730; 93005; 99284; A9270

== ENCOUNTER 2023-05-30 09:47 | Outpatient (CLI) | payer OTHER, SELFPAY ==
--- NOTE | ~2023-05-30 | US_ITS ---
Limited Abdominal Sonogram: Real-time sonographic imaging of the right upper quadrant was performed. Clinical History: Right upper quadrant pain Findings: The liver appears mildly heterogeneous, with no evidence of mass lesion or bile duct dilat ation. Main portal vein demonstrates normal direction of flow. The gallbladder is partially distended , with probable echogenic shadowing gallstone near the gallbladder neck. No definite gallbladder wall thickening. The common bile duct measures 5 mm. The pancreas, aorta, and IVC are obscured by bowel gas shadowing. Impression: Gallstone at the gallbladder neck. No gallbladder wall thickening. Possible fatty infiltration of liver. Reviewed, dictated and finalized at [facility]. EN LABOURER Impression: Gallstone at the gallbladder neck. No gallbladder wall thickening. Possible fatty infiltration of liver.
== END 2023-05-30 09:48 ==
LOC: GOSHIMG 09:48
PROVIDERS: PCP Clinical Nurse Specialist; Visit Provider Clinical Nurse Specialist
DX: R10.11 Right upper quadrant pain (principal); K80.20 Calculus of gallbladder without cholecystitis without obstruction
CPT/HCPCS: 76705

== ENCOUNTER 2023-06-06 15:51 | Outpatient (CLI) | payer OTHER, SELFPAY ==
[2023-06-06 16:23] LABS: Amylase 101 U/L (30-110)
== END 2023-06-06 15:52 | disposition home or self-care (01) ==
LOC: ANHLAB 15:52
PROVIDERS: PCP Clinical Nurse Specialist; Visit Provider Surgery
DX: Z01.818 Encounter for other preprocedural examination (principal); K80.20 Calculus of gallbladder without cholecystitis without obstruction
CPT/HCPCS: 36415; 82150; 86850; 86880; 86900; 86901; 86902

== ENCOUNTER 2023-06-17 00:37 | Day surgery (SDC) | payer OTHER, SELFPAY ==
[2023-06-06 15:20] VITALS: BMI 33.9
--- NOTE | 2023-06-06 15:25 | PC.NURSE ---
Report to the Outpatient Waiting Room, entrance under the green pavilion located off [facility], at time 10:00 on date 06/17/23. Planned Procedure Time: 12:00. Time changes happen often and if your time is changed the preop area will call you the afternoon before. - You and your visitor will be asked to self-screen and do not enter if you have any COVID symptoms. - A mask is optional within the hospital at this time. Patients may have clear liquids (water, carbonated beverages, clear teas, apple juice) until 3 hours prior to surgery (9:00) with a maximum of 20 ounces. - No food from midnight until time of surgery Take the following medications with a SIP of water the morning of surgery: N/A DO NOT STOP ANY OF YOUR OTHER PRESCRIPTION MEDICATIONS PRIOR TO SURGERY ?EXCEPT THE FOLLOWING Medications to discontinue per physician: N/A Date to take last dose: N/A Please no make-up, nail tanzanian, hairspray, perfume, deodorant, or body powder the day of surgery. No jewelry (including any body piercings) or valuables the day of surgery, leave them at home. Please take a shower or bath the night before, or the morning of, surgery with an antibacterial soap. Wear comfortable, loose fitting clothing. - Jewelry must be removed prior to entering the operating room. Rings and piercings that are not removed may be cut off. - The hospital will not accept responsibility for valuables. - Please leave all valuables, including medications, at home the day of surgery. If you are going home after surgery, a licensed [employer] company flatbed driver must drive you home. - NO public transportation without another adult if you receive anesthesia. - We recommend that an adult stay with you for 24 hours following discharge. - We also recommend that you do not drive, make important decision, drink alcoholic beverages, or take any drugs that were not prescribed by your health care provider for at least 24 hours after your discharge time. Follow any additional instructions given to you from your surgeon. If you or anyone in your household have experienced Covid symptoms in the past week, please notify your surgeon or the nurse liaison at the phone number below for possible testing. Telephone instructions given to PT - ANI STOCKTON and asked if any additional questions and then verbalized understanding. Patient advised to call surgeon office or pre surgery nurse liaison [phone] if any additional questions.
[2023-06-17] VITALS (10 sets, daily range): BP systolic 97–119; BP diastolic 57–81; PULSE 55–93; RESP 13–16; TEMP 37.1–37.2; O2SAT 97–100
[2023-06-17] MEDS: ACETAMINOPHEN 500 MG TABLET 1000 MG PO (10:35)
[2023-06-17] MEDS: LACTATED RINGERS 1,000 ML 30 ML IV CONT ×3 (10:40→15:38)
[2023-06-17] MEDS: KETOROLAC 15 MG/ML VIAL (*BKC) IV PUSH ×2 (11:21→13:25)
--- NOTE | 2023-06-17 11:26 | WPDANESEPPF ---
Anes - Initial Pre Proc Eval Procedure: Operation Date: 06/17/23 12:00 Proposed Procedures p Laparoscopic Cholecystectomy, Possible Open - Shayne Rogers MD Date/Time: 06/17/23 11:26 Surgeon: Shayne Rogers MD Pre Op Diagnosis: symptomatic cholelithiasis Patient Data Age: 33 Gender: F Height: 1.68 m Weight: 95.6 kg Last Vital Signs Temp 37.2 C 06/17/23 10:47 Pulse 70 06/17/23 10:47 Resp 16 06/17/23 10:47 BP 104/67 06/17/23 10:47 Pulse Ox 99 06/17/23 10:47 O2 Del Method Room Air 06/17/23 10:47 Allergies Allergy/AdvReac Type Severity Reaction Status Date / Time pineapple Allergy Severe Anaphylactic Verified 06/17/23 10:46 Shock ceftriaxone Allergy Unknown Rash Verified 06/06/23 15:20 Cephalosporins Allergy Unknown Rash Verified 06/06/23 15:20 codeine Allergy Unknown Hallucinati Verified 06/06/23 15:20 ng morphine Allergy Unknown Hallucinati Verified 06/06/23 15:20 ng shellfish derived Allergy Unknown Rash Verified 06/06/23 15:20 Sulfa (Sulfonamide Allergy Unknown Rash Verified 06/06/23 15:20 Antibiotics) Home Medications Medication Instructions Recorded Confirmed Type No Home Medications 06/05/23 06/06/23 History Patient hx anesthesia problems: none Family hx anesthesia problems: none Results Review: All pre-operative results and documents have been reviewed as part of the pre-operative evaluation. [facility] Past Medical History Medical History (Updated 06/05/23 @ 14:20 by Em Jade Dino) Frequent headaches Low back pain Multiple sclerosis Surgical History Surgical History H/O tubal ligation History of delivery x3 History of D&C Family History Family History Father Depression Anxiety Alcohol abuse Mother Cancer Anxiety Depression Sibling Alcohol abuse Grandparent Alcohol abuse Cancer Diabetes mellitus Social History Social History (Updated 06/05/23 @ 13:42 by Paola Hall CMA) Smoking packs per day: 1 Smoking cigarettes per day: 20.0 Years smoked: 3 Smoking pack-years: 3.00 Smoking status: Former smoker Tobacco type: cigarettes Smoking end date: 07/22/17 Alcohol intake: never Substance use: never Substance use type: does not use Lack of Transportation: No Lack of Food: Never True Current Housing: I Have Housing Concerned About Future Housing: No Difficulty Paying Gas/Electric Bills: No Difficulty Paying for Meds: No Currently Unemployed: No Education: High School Diploma/GED Difficulty w/ Childcare or Family Care: No Living arrangements: with family Gender identity (if verbalized by the patient): Female Sexual Orientation (if Verbalized by the Patient): Straight or Heterosexual Spiritual care concerns: No Anes - Eval Final PreProcedure Day of Procedure 06/17/23 11:26 Patient weight: obese Heart: regular rate and rhythm Lungs: clear to auscultation Airway: Mallampati scale class II Neurological: alert and oriented Last oral intake: >/= 8 hours ASA classification: III Emergent: no Anesthetic plan: proceed Anesthesia type and monitoring: general ETT and standard monitoring Results Review: All pre-operative results and documents have been reviewed as part of the pre-operative evaluation. Informed Consent: The patient's anesthetic plan and its attendant risks and benefits were discussed with the patient/family/POA. Questions were solicited and answers provided to the satisfaction of the patient/family/POA.
--- NOTE | 2023-06-17 12:24 | WPDHPUPDATE1 ---
History and Physical Update Update Date/Time: 06/17/23 12:24 History and Physical has been reviewed, including an updated exam of the patient. There are NO changes in the patient's condition. Risks, benefits, and alternatives have been discussed and questions answered. Patient agrees to proceed with procedure.
[2023-06-17] MEDS: CLINDAMYCIN 900 MG/D5W 50 ML 900 MG/50 ML PIGGYBACK 50 MG IVPB (12:30)
[2023-06-17] MEDS: BUPivacaine HCL 0.5% PF 30 ML VIAL INFILTRATE (13:02)
--- NOTE | 2023-06-17 13:45 | W.PM.PROC2 ---
Procedure Note - Detailed Date of Procedure 06/17/23 Pre-op Diagnosis symptomatic cholelithiasis Post-op Diagnosis Same Procedure Performed Laparoscopic cholecystectomy. Surgeon Shayne Rogers MD Scientific Informatics Project Leader Amirah CLINEA Anesthesia General Indications Patient is a 33-year-old male presented with intermittent right upper quadrant abdominal pain which radiates to her back. Pain is made worse with eating spicy and fatty foods. Imaging shows a gallstone within the neck of the gallbladder and some mild thickening of the gallbladder wall suggestive of chronic inflammation of the gallbladder. She presents now for an elective laparoscopic cholecystectomy. Findings Single gallstone was palpated with a gallbladder measuring about 0.5 to 1 cm in diameter. There is mild gallbladder wall thickening a couple adhesions of the omentum to the gallbladder wall suggestive of chronic inflammation. No evidence of acute cholecystitis. Description of Procedure After informed consent was obtained patient brought to the operating room she was placed supine position and general endotracheal anesthesia was administered. An orogastric tube was placed decompress the stomach. The abdomen was then prepped and draped usual sterile fashion. Time-out was then performed to correctly identify the patient as well as procedure to be performed. No site marking was needed. Was given some clindamycin for perioperative IV antibiotics. I 1st started by entering the abdomen left upper quadrant utilizing a 5mm Optiview port. Once inside the abdomen insufflated and pneumoperitoneum of 15mm of mercury with CO2. I looked around the area the umbilicus there were few omental adhesions below the umbilicus from prior . They were not going to interfere with the placing a periumbilical trocar port site placed a 5mm periumbilical trocar port cephalad of these adhesions. I then switched the laparoscopic camera to the periumbilical trocar port looking to the upper portions of the abdomen placed a 10mm epigastric trocar port and 2 right lateral subcostal 5mm trocar ports on direct visualization. The gallbladder was visualized was mildly distended. There were couple adhesions of the omentum to the gallbladder wall which is chronic in nature. The gallbladder was mildly thickened. I had the gallbladder laparoscopic grasper at the dome and elevated the gallbladder over the right half liver towards the right shoulder. A 2nd grasper used to hold the gallbladder at the infundibulum. I then proceeded to strip down the omental adhesions to the gallbladder wall bluntly without any difficulty. I then proceeded to strip down the visceroperitoneum of the infundibular gallbladder to identify the cystic duct. The cystic duct was then dissected out circumferentially. The cystic artery was identified dissected out circumferentially as well. Posterior wall the gallbladder at the infundibulum dissected free of the liver into the critical view was obtained. At this point I then placed 2 clips proximal cystic duct and 2 clips distally high on infundibular gallbladder. The cystic duct was divided with Endo Luiza. In a similar fashion the cystic artery clipped and divided as well. The gallbladder was resected off of the utilized electrocautery. Once it was freed from liver is placed into an Endo-Catch bag and brought out the epigastric port site. The gallbladder is contents were sent to pathology for examination. I then irrigated out the right upper quadrant and the and the gallbladder fossa copious sterile saline solution. Hemostasis was excellent. There was no evidence of bile leak. I then removed all the trocar ports under visualization all port sites appeared hemostatic. I then allowed the abdomen decompressed. I area the port sites sterile saline solution. Hemostasis was good. The 10mm epigastric trocar port fascial defect was then closed utilizing 0 Vicryl suture placed in a figure-eight fas
[2023-06-17] MEDS: ONDANSETRON INJ 4 MG/2 ML VIAL IV PUSH (14:07)
[2023-06-17] MEDS: fentaNYL CITRATE INJ (*CRX) 100 MCG/2 ML VIAL 25 MCG IV PUSH ×3 (14:13→14:25)
[2023-06-17] MEDS: diphenhydrAMINE HCl INJ 50 MG/ML VIAL 25 MG IV PUSH (14:44)
[2023-06-17] MEDS: SCOPOLAMINE 1.5 MG PATCH TRANSDERM (14:44)
[2023-06-17] MEDS: traMADol HCL (*CRX) 50 MG TABLET PO (15:38)
== END 2023-06-17 16:18 | disposition home or self-care (01) ==
PROVIDERS: PCP Clinical Nurse Specialist; Visit Provider Surgery
PROC: 0FT44ZZ Resection of Gallbladder, Percutaneous Endoscopic Approach (ICD-10-PCS; CPT 47562; principal; 2023-06-17 12:00)
DX: K80.10 Calculus of gallbladder with chronic cholecystitis without obstruction (principal); G35 Multiple sclerosis; E66.9 Obesity, unspecified; Z68.34 Body mass index [BMI] 34.0-34.9, adult; Z87.891 Personal history of nicotine dependence; Z80.9 Family history of malignant neoplasm, unspecified
CPT/HCPCS: 47562; 36415; 82150; 86850; 86880; 86900; 86901; 86902; 88304; A9270; C1713; J1100; J1170; J1200; J1885; J2250; J2405; J2704; J3010; J7120

== ENCOUNTER 2023-06-28 04:31 | Observation (INO) | payer OTHER, SELFPAY ==
[2023-06-28] VITALS (7 sets, daily range): BP systolic 104–125; BP diastolic 68–90; PULSE 56–77; RESP 14–20; TEMP 36.3; O2SAT 96–100; BMI 32.8
--- NOTE | ~2023-06-28 | CT_ITS ---
CT of the Abdomen and Pelvis: Indication: Abdominal Technique: 2.5 mm axial scans were obtained through the abdomen and pelvis following intravenous adm inistration of 100 cc of Omnipaque 350. Dose reduction technique was used on this scan by utilizing a utomated exposure control and iterative reconstruction technique. The dose-length product (DLP) was 1 208.57 mGy-cm. COMPARISON: 02/28/2021 Findings: Scans through the lung bases are unremarkable. The liver, spleen, pancreas, adrenals and kidneys are within normal limits. Cholecystectomy clips are present. There is minimal haziness in the gallbladder fossa region. No evidence of aortic aneurysm. No lymphadenopathy. No bowel obstruction or bowel wall thickening. There is no evidence to suggest acute appendicitis. Images through the pelvis were performed. Urinary bladder unremarkable. No adnexal mass seen. Trace p elvic ascites. Impression: Minimal haziness in the gallbladder fossa region, with cholecystectomy clips. Findings could reflect sequelae recent cholecystectomy. Correlate with timing of prior surgery. Trace pelvic ascites. Reviewed, dictated and finalized at [facility]. IFIED NURSE PRACTITIONER Impression: Minimal haziness in the gallbladder fossa region, with cholecystectomy clips. F indings could reflect sequelae recent cholecystectomy. Correlate with timing of prior surgery. Trace pelvic ascites.
--- NOTE | ~2023-06-28 | NM_ITS ---
EXAMINATION: NM hepatobiliary wo pharm DATE: 06/28/2023 09:23 INDICATION: Right upper quadrant abdominal pain. Possible bile leak. COMPARISON: None. TECHNIQUE: 2.8 mCi Tc-99m mebrofenin (Choletec) was administered intravenously. Scintigraphic images of the abdomen were obtained for one hour. Additional 4 hour delayed anterior and right lateral scin tigrams were obtained. FINDINGS: There is normal clearance of radiotracer from the blood pool. There is homogeneous tracer u ptake by the liver. There is delayed biliary excretion of activity with activity first evident in the nondilated appearing common bile duct at 40 minutes. There is however significantly greater quantiti es of hepatic activity on the 60 minute images with negligible activity at this point in the duodenum . Persistent greater than expected activity in the liver on the 4 hour delayed images although the ma jority of the activity has progressed into the small bowel. No gallbladder activity consistent with h istory of cholecystectomy. There is no evident bile leak. IMPRESSION: 1. Homogeneous hepatic uptake with significantly delayed hepatic excretion of activity but without s uggestion of common bile duct dilation. Differential would include hepatic dysfunction, partial bilia ry obstruction and cholestatic jaundice (nonobstructive cholestasis). 2. No bile leak. Reviewed, dictated and finalized at location A. O GAME REPAIR TECHNICIAN IMPRESSION: 1. Homogeneous hepatic uptake with significantly delayed hepatic excretion of activity but without suggestion of common bile duct dilation. Differential woul d include hepatic dysfunction, partial biliary obstruction and cholestatic mao dice (nonobstructive cholestasis). 2. No bile leak.
--- NOTE | 2023-06-28 04:51 | ECG_ITS ---
Measurements Intervals [place] Rate: 60 P: 14 MN: 131 QRS: 28 QRSD: 86 T: 38 QT: 417 QTc: 420 Interpretive Statements SINUS RHYTHM COMPARED TO ECG 05/15/2023 22:01:56 NO SIGNIFICANT CHANGES Electronically Signed On 06-29-2023 12:59:17 UI UX ENGINEER by Rob Gonsalez M.D.
[2023-06-28] MEDS: SODIUM CHLORIDE 0.9% IV 1,000 ML 999 ML IV CONT (05:14)
[2023-06-28 05:16] LABS: Basophils Absolute Auto 0.1 K/mm3 (0.0-0.1); Basophils Percent Auto 0.6 % (0.2-1.2); Eosinophils Absolute Auto 0.4 K/mm3 (0-0.3); Eosinophils Percent Auto 4.1 % (0-4.4); Hemoglobin 12.3 g/dL (12.0-15.0); Immature Granulocyte Absolute 0.03 K/mm3 (0.00-0.031); Immature Granulocyte Percent A 0.3 % (0-0.5); Lymphocytes Absolute Auto 2.43 K/mm3 (0.9-3.2); Lymphocytes Percent Auto 27.8 % (18.3-44.2); Mean Corpuscular HGB Conc 33.2 g/dl (32-36); Mean Corpuscular Hemoglobin 28.5 pg (26-34); Mean Corpuscular Volume 85.8 fl (80-100); Mean Platelet Volume 9.9 fl (7.4-10.4); Monocytes Absolute Auto 0.5 K/mm3 (0.1-0.6); Monocytes Percent Auto 5.3 % (2.6-8.5); Neutrophils Absolute Auto 5.4 K/mm3 (1.3-6.7); Neutrophils Percent Auto 61.9 % (45.5-73.1); Platelet Count Result 282 k/mm3 (150-375); Red Blood Count 4.31 M/mm3 (4.2-5.4); Red Cell Distribution Width 12.8 % (11.5-14.5); White Blood Count 8.7 K/mm3 (4.5-10.0)
--- NOTE | 2023-06-28 05:22 | ED.ABDPAIN ---
HPI - Abdominal Pain General Chief Complaint: Abdominal Pain Stated Complaint: Gall bladder removed 10 days ago, abd pain Time Seen by Provider: 06/28/23 04:37 History of Present Illness HPI narrative: Patient is a 33-year-old female who presents ER with epigastric pain. She is currently 10 days status post cholecystectomy. She has been having intermittent cramping the epigastrium but this evening it is been much more intense and persistent. No nausea or vomiting. No improvement with ibuprofen or Tylenol. No blood in her stools. No fevers or chills or sweats. Is not necessarily associated with eating or drinking. Related Data Allergies Allergy/AdvReac Type Severity Reaction Status Date / Time pineapple Allergy Severe Anaphylactic Verified 06/28/23 04:48 Shock ceftriaxone Allergy Unknown Rash Verified 06/28/23 04:48 Cephalosporins Allergy Unknown Rash Verified 06/28/23 04:48 codeine Allergy Unknown Hallucinati Verified 06/28/23 04:48 ng morphine Allergy Unknown Hallucinati Verified 06/28/23 04:48 ng shellfish derived Allergy Unknown Rash Verified 06/28/23 04:48 Sulfa (Sulfonamide Allergy Unknown Rash Verified 06/28/23 04:48 Antibiotics) Review of Systems Review of Systems: All systems reviewed & are unremarkable except as noted in HPI and below Constitutional: Constitutional: Denies chills, Denies fatigue and Denies fever(s) ENT: Reports system reviewed and no additional complaints, except as documented Cardiovascular: Cardiovascular: Reports no additional cardiovascular complaints Respiratory: Respiratory: Reports no additional respiratory complaints Gastrointestinal: Gastrointestinal: Reports abdominal pain, Denies constipation, Denies diarrhea, Denies nausea and Denies vomiting Genitourinary: Genitourinary: Denies nocturia and Denies dysuria [facility] Past Medical History Medical History (Updated 06/28/23 @ 07:26 by Luis Manuel Weiss MD) Frequent headaches Low back pain Multiple sclerosis Surgical History Surgical History H/O tubal ligation History of delivery x3 History of D&C Family History Family History Father Depression Anxiety Alcohol abuse Mother Cancer Anxiety Depression Sibling Alcohol abuse Grandparent Alcohol abuse Cancer Diabetes mellitus Social History Social History (Updated 06/05/23 @ 13:42 by Paola Hall [facility]) Smoking packs per day: 1 Smoking cigarettes per day: 20.0 Years smoked: 3 Smoking pack-years: 3.00 Smoking status: Former smoker Tobacco type: cigarettes Smoking end date: 07/22/17 Alcohol intake: never Substance use: never Substance use type: does not use Lack of Transportation: No Lack of Food: Never True Current Housing: I Have Housing Concerned About Future Housing: No Difficulty Paying Gas/Electric Bills: No Difficulty Paying for Meds: No Currently Unemployed: No Education: High School Diploma/GED Difficulty w/ Childcare or Family Care: No Living arrangements: with family Gender identity (if verbalized by the patient): Female Sexual Orientation (if Verbalized by the Patient): Straight or Heterosexual Spiritual care concerns: No Exam Narrative: GENERAL: Well-appearing, well-nourished, and in no acute distress. HEAD: Normocephalic, atraumatic. ENT: Mucous membranes moist. NECK: Supple. CHEST: Clear to auscultation. No respiratory distress. HEART: Regular rate and rhythm. Normal peripheral pulses. ABDOMEN: Soft, mild epigastric tenderness without guarding, nondistended, well-healing surgical port sites. EXTREMITIES: Normal range of motion. No edema. SKIN: Warm, dry, no rash. NEURO: Alert and oriented x3. PSYCH: Normal mood and affect. Course Course Emergency Course: Patient's pain had improved however after speaking with general surg
[2023-06-28 05:32] LABS: Alanine Aminotransferase 30 U/L (6-35); Albumin Level 3.8 g/dL (3.5-5.1); Alkaline Phosphatase 92 U/L (38-126); Anion Gap 9 mmol/L (8-16); Aspartate Amino Transferase 31 U/L (14-36); Bilirubin,Total 0.5 mg/dL (0.2-1.3); Blood Urea Nitrogen 14 mg/dL (7-17); Carbon Dioxide 21 mmol/L (22-30); Chloride 108 mmol/L (98-107); Estimated CRCL calculation 115 ml/min; Estimated Glomerular Filt Rate > 60; Glucose 102 mg/dL (65-110); Lipase 107 U/L (23-300); Potassium 3.8 mmol/L (3.4-5.0); Prothrombin Time 13.5 Seconds (11.1-14.7); Sodium 138 mmol/L (137-145)
[2023-06-28 05:33] LABS: Partial Thromboplastin Time 34.8 SECONDS (22.3-36.8)
[2023-06-28] MEDS: SODIUM CHLORIDE 0.9% IV 1,000 ML 125 ML IV CONT ×2 (07:43→11:40)
[2023-06-28] MEDS: fentaNYL CITRATE INJ (*CRX) 100 MCG/2 ML VIAL 50 MCG IV PUSH (07:43)
--- NOTE | 2023-06-28 10:34 | ADMGEN ---
This patient, Isabela Almaraz, was admitted to [facility] Surg Room 326-01. Patient/family oriented to hospital policies and general routines including ID bracelet, bed and alarms, visiting hours, pain management, procedures, bathroom and other care routines, personal items, smoking policy, room service/diet, and visiting hours. Information on how to activate the Rapid Response Team has been discussed. Patient/Family are encouraged to report perceived risks to care and to ask questions if they do not understand what they are told or what they should do.
--- NOTE | 2023-06-28 12:01 | PM.SD2 ---
Same Day Admit/Disch: HPI History of Present Illness Chief complaint: Post Operative Pain Narrative: Isabela Almaraz is a 33 year old female who presented to the emergency department overnight with acute onset of mid abdominal pain. She is status post laparoscopic cholecystectomy by Dr. Rogers 10 days ago. She states that she had been doing well for the 1st several days postop and then last night had the acute onset of worsening pain. She states that this feels different than she had with gallbladder attacks. She denies any jaundice, dark urine, or any other new symptoms. She had some slight nausea associated with the pain but no vomiting. Her bowels have been moving normally since the surgery. In the emergency department she did to take any stronger pain meds as she already a full dose Tylenol and ibuprofen. She was still continuing to have pain in the emergency department therefore she was admitted to rule out any other postoperative complications. [facility] Past Medical History Medical History (Updated 06/28/23 @ 12:07 by Kike Castro DO) Frequent headaches Low back pain Multiple sclerosis Surgical History Surgical History (Updated 06/28/23 @ 12:07 by Kike Castro DO) H/O tubal ligation History of delivery x3 History of D&C Status post laparoscopic cholecystectomy Family History Family History Father Depression Anxiety Alcohol abuse Mother Cancer Anxiety Depression Sibling Alcohol abuse Grandparent Alcohol abuse Cancer Diabetes mellitus Social History Social History (Updated 06/05/23 @ 13:42 by Paola Hall CMA) Smoking packs per day: 1 Smoking cigarettes per day: 20.0 Years smoked: 3 Smoking pack-years: 3.00 Smoking status: Former smoker Alcohol intake: never Substance use: never Substance use type: does not use Lack of Transportation: No Lack of Food: Never True Current Housing: I Have Housing Concerned About Future Housing: No Difficulty Paying Gas/Electric Bills: No Difficulty Paying for Meds: No Currently Unemployed: No Education: High School Diploma/GED Difficulty w/ Childcare or Family Care: No Living arrangements: with family Gender identity (if verbalized by the patient): Female Sexual Orientation (if Verbalized by the Patient): Straight or Heterosexual Spiritual care concerns: No Same Day Admit/Disch: Med Pre-admit Medications Home Medications Medication Instructions Recorded Confirmed Type No Home Medications 06/28/23 06/28/23 History Review of Systems Review of Systems All systems reviewed & are unremarkable except as noted in HPI and below Constitutional Constitutional: Denies chills and Denies fever(s) Eyes Eyes: Denies change in vision ENT Denies hearing loss, Denies neck pain and Denies sore throat Cardiovascular Cardiovascular: Denies chest pain and Denies dyspnea Respiratory Respiratory: Denies cough, Denies dyspnea and Denies wheezing Gastrointestinal Gastrointestinal: Reports as per HPI Genitourinary Genitourinary: Denies hematuria and Denies dysuria Musculoskeletal Musculoskeletal: Denies arthralgias, Denies joint swelling and Denies neck pain Allergic/Immunologic Allergic/Immunologic: Denies wheezing Exam Const: General: alert; No acute distress Orientation/consciousness: patient oriented x3 Limitations: no limitations HENMT: Head: normocephalic and atraumatic Ears: hearing grossly normal bilaterally Face/Nose/Sinus: Normal external nose present and Normal nares present Mouth: Yes Normal oral and palatal mucosa present and Yes moist mucous membranes Eyes: General: appearance normal, both eyes and all related structures Conjunctivae: conjunctivae normal Sclera: sclerae normal Pupils: Equal, round and reactive pupils present EOM: EOMs intact bilaterally Neck: Neck: normal visual inspection, full ROM, no lymphadeno
== END 2023-06-28 13:10 | disposition home or self-care (01) ==
LOC: ANHED 07:26 → ANH3MEDSUR 09:18
PROVIDERS: Admitting Provider Surgery; Emergency Provider Emergency Medicine; PCP Clinical Nurse Specialist; Visit Provider Surgery
DX: G89.18 Other acute postprocedural pain (principal); Z90.49 Acquired absence of other specified parts of digestive tract; M54.50 Low back pain, unspecified; G35 Multiple sclerosis; Z87.891 Personal history of nicotine dependence
CPT/HCPCS: 36415; 74177; 78226; 80053; 83690; 85025; 85610; 85730; 93005; 96361; 96374; 99285; A9537; G0378; J3010; J7030; Q9967

== ENCOUNTER 2023-09-11 17:19 | Emergency (ER) | payer OTHER, SELFPAY ==
--- NOTE | ~2023-09-11 | CT_ITS ---
EXAMINATION: CT brain wo con DATE: 09/11/2023 20:58 INDICATION: Left orbital headache. TECHNIQUE: Computed tomography (CT) of the head was performed without intravenous contrast. The mA wa s adjusted according to patient size. Iterative reconstruction technique was employed. The dose-lengt h product was 605.33 mGy-cm. COMPARISON: Head CT 04/03/2022 FINDINGS: There is no intracranial hemorrhage, acute infarction, or abnormal intracranial mass lesion . The ventricles are normal in size. The orbits are normal. There is mild mucosal thickening in the p aranasal sinuses. The mastoid air cells are normal. IMPRESSION: 1. Normal brain. Reviewed, dictated and finalized at location E. TRIMMER IMPRESSION: 1. Normal brain.
[2023-09-11 17:30] VITALS: BP 114/72; PULSE 72; RESP 20; TEMP 36.2; O2SAT 100
[2023-09-11 19:14] VITALS: BP 125/83; PULSE 69; RESP 16; TEMP 36.6; O2SAT 100
--- NOTE | 2023-09-11 19:39 | ED.HA ---
HPI - Headache General Chief Complaint: Headache Stated Complaint: L ORBITAL MIGRAINE X5D Time Seen by Provider: 09/11/23 19:35 Source: patient Mode of arrival: ambulatory Limitations: no limitations History of Present Illness HPI Narrative: 33 yo female with MS (not on medications) presents with left orbital migraine x5 days. Has been trialing OTC medications (Excedrin XR, Sudafed, Mucinex, magnesiusm, tylenol, ibuprofen). She has had similar headaches before. She gets migraines like this with classic scintillating scotomas. She feels it is less likely to be a flare of optic neuritis as notes this presents slightly differently. States she normally gets headache cocktail including magnesium and steroid and sometimes steroid Rx. No trauma, anticoagulation, household members with similar symptoms. No visiion changes/loss though last time she had an optic neuritis flare she had a curtain veil complication. No photophobita or phonophobia. Headache pressure spreads down her neck. Related Data Allergies Allergy/AdvReac Type Severity Reaction Status Date / Time pineapple Allergy Severe Anaphylactic Verified 07/09/23 09:18 Shock ceftriaxone Allergy Unknown Rash Verified 07/09/23 09:18 Cephalosporins Allergy Unknown Rash Verified 07/09/23 09:18 codeine Allergy Unknown Hallucinati Verified 07/09/23 09:18 ng morphine Allergy Unknown Hallucinati Verified 07/09/23 09:18 ng shellfish derived Allergy Unknown Rash Verified 07/09/23 09:18 Sulfa (Sulfonamide Allergy Unknown Rash Verified 07/09/23 09:18 Antibiotics) [facility] Past Medical History Medical History Frequent headaches Low back pain Multiple sclerosis Surgical History Surgical History H/O tubal ligation History of delivery x3 History of D&C Status post laparoscopic cholecystectomy Family History Family History Father Depression Anxiety Alcohol abuse Mother Cancer Anxiety Depression Sibling Alcohol abuse Grandparent Alcohol abuse Cancer Diabetes mellitus Social History Social History Smoking packs per day: 1 Smoking cigarettes per day: 20.0 Years smoked: 3 Smoking pack-years: 3.00 Smoking status: Former smoker Alcohol intake: never Substance use: never Substance use type: does not use Do You Feel Safe in your Home?: Yes Lack of Transportation: No Lack of Food: Never True Current Housing: I Have Housing Concerned About Future Housing: No Difficulty Paying Gas/Electric Bills: No Difficulty Paying for Meds: No Currently Unemployed: No Education: High School Diploma/GED Difficulty w/ Childcare or Family Care: No Living arrangements: with family Gender identity (if verbalized by the patient): Female Sexual Orientation (if Verbalized by the Patient): Straight or Heterosexual Spiritual care concerns: No Exam Narrative: GENERAL: Well-appearing, well-nourished, and in no acute distress. HEAD: Normocephalic, atraumatic. EYES: Non injected, non icteric. Pupils equally reactive to light. No APD. EOMI. ENT: Nares clear, no rhinorrhea or epistaxis. NECK: Supple. No meningismus. CHEST: Speaking in complete sentences. . No respiratory distress. HEART: Regular rate and rhythm. . ABDOMEN: Soft, nondistended. EXTREMITIES: Normal range of motion. No edema. SKIN: Warm, dry, no rash. NEURO: No focal deficits. Moving all extremities and sensation intact throughout. Alert and oriented x3. Facial movemements symmetric (smile, closed eyes, furrowed brow), sensation intact to touch across face. PSYCH: Normal mood and affect. Course Vital Signs Vital signs: Vital Signs Temperature 97.2 F L 09/11/23 17:30 Pulse Rate 72 09/11/23 17:30 Respiratory Rate 20 02
[2023-09-11] MEDS: ACETAMINOPHEN 500 MG TABLET 1000 MG PO (20:04)
[2023-09-11] MEDS: predniSONE 20 MG TABLET PO (20:04)
[2023-09-11] MEDS: diphenhydrAMINE HCl INJ 50 MG/ML VIAL 25 MG IV PUSH (20:05)
[2023-09-11] MEDS: KETOROLAC 15 MG/ML VIAL (*BKC) IV PUSH (20:07)
[2023-09-11] MEDS: PROCHLORPERAZINE EDISYLATE 10 MG/2 ML VIAL IV PUSH (20:09)
[2023-09-11] MEDS: MAGNESIUM SULF 1 GM/D5W 100 ML 1 GM/100 ML BAG IVPB (20:13)
[2023-09-11 20:39] VITALS: BP 149/82; PULSE 63; RESP 15; O2SAT 97
[2023-09-11 22:07] VITALS: BP 111/76; PULSE 63; RESP 15; O2SAT 99
== END 2023-09-11 22:09 | disposition home or self-care (01) ==
PROVIDERS: Emergency Provider Student in an Organized Health Care Education/Training Program; PCP Internal Medicine
DX: R51.9 Headache, unspecified (principal); G35 Multiple sclerosis
CPT/HCPCS: 70450; 96365; 96375; 99284; A9270; J0780; J1200; J1885; J3475; J7512

== ENCOUNTER 2023-11-09 17:28 | Emergency (ER) | payer OTHER, SELFPAY ==
--- NOTE | ~2023-11-09 | XR_ITS ---
EXAM: XR knee RT min 4V DATE: 11/09/2023 18:00 HISTORY: pain, stepped in hole and twisted knee . COMPARISON: 12/22/2018 x-ray tibia fibula. FINDINGS: Normal mineralization. No fracture or dislocation. No lytic or blastic lesion. Joint space s are maintained. No erosion or periosteal change. Soft tissues within normal limits. IMPRESSION: No acute osseous finding in the right knee. Reviewed, dictated and finalized at location K.
[2023-11-09 17:33] VITALS: BP 141/92; PULSE 80; RESP 18; O2SAT 100
--- NOTE | 2023-11-09 18:10 | ED.GENADULT ---
HPI - General Adult General Chief complaint: Extremity Injury, Lower Stated complaint: knee pain, Time Seen by Provider: 11/09/23 17:32 Source: patient Mode of arrival: ambulatory Limitations: no limitations History of Present Illness HPI narrative: This is a 33-year-old female who presents to the ED with chief complaint of right knee pain following injury that occurred just prior to arrival. Patient reports that she was plan in [place] with [place] kids. Reports that the right ankle got caught and hole and caused her knee to twist. She reports feeling immediate pop in the knee. States pain worsens with range of motion and with weight-bearing. Patient reports that she then felt some numbness and the knee area but is unsure of this is just due to her MS. Denies any numbness or tingling in the foot. Denies any further sites of pain or injury Related Data Allergies Allergy/AdvReac Type Severity Reaction Status Date / Time pineapple Allergy Severe Anaphylactic Verified 11/09/23 17:40 Shock ceftriaxone Allergy Unknown Rash Verified 11/09/23 17:40 Cephalosporins Allergy Unknown Rash Verified 11/09/23 17:40 codeine Allergy Unknown Hallucinati Verified 11/09/23 17:40 ng morphine Allergy Unknown Hallucinati Verified 11/09/23 17:40 ng shellfish derived Allergy Unknown Rash Verified 11/09/23 17:40 Sulfa (Sulfonamide Allergy Unknown Rash Verified 11/09/23 17:40 Antibiotics) Review of Systems Review of Systems: All systems as dictated in HPI PMFSH Past Medical History Medical History Frequent headaches Low back pain Multiple sclerosis Surgical History Surgical History H/O tubal ligation History of delivery x3 History of D&C Status post laparoscopic cholecystectomy Family History Family History Father Depression Anxiety Alcohol abuse Mother Cancer Anxiety Depression Sibling Alcohol abuse Grandparent Alcohol abuse Cancer Diabetes mellitus Social History Social History Smoking packs per day: 1 Smoking cigarettes per day: 20.0 Years smoked: 3 Smoking pack-years: 3.00 Smoking status: Former smoker Alcohol intake: never Substance use: never Substance use type: does not use Do You Feel Safe in your Home?: Yes Lack of Transportation: No Lack of Food: Never True Current Housing: I Have Housing Concerned About Future Housing: No Difficulty Paying Gas/Electric Bills: No Difficulty Paying for Meds: No Currently Unemployed: No Education: High School Diploma/GED Difficulty w/ Childcare or Family Care: No Living arrangements: with family Gender identity (if verbalized by the patient): Female Sexual Orientation (if Verbalized by the Patient): Straight or Heterosexual Spiritual care concerns: No Exam Narrative: GENERAL: Well-appearing, well-nourished, and in no acute distress. HEAD: Normocephalic, atraumatic. EYES: PERRLA and EOMI. ENT: Nares clear, no rhinorrhea or epistaxis. Mucous membranes moist. Oropharynx without tonsillar hypertrophy exudate or other lesions. NECK: Supple. No adenopathy or masses. CHEST: No respiratory distress. Clear to auscultation. No wheezes rales or rhonchi HEART: Regular rate and rhythm. No murmur heard. Normal peripheral pulses. ABDOMEN: Soft, nontender, nondistended, normal active bowel sounds. MSK: RLE: Minimal effusion to the knee. No bruising. No deformity. Mild joint line tenderness bilaterally. Pain worsens with passive range of motion but ROM is nearly full. LLE: Benign SKIN: Warm, dry, no rash. NEURO: Alert and oriented x3. No focal deficits. PSYCH: Normal mood and affect. Course Vital Signs Vital signs: Vital Signs Pulse Rate 80 11/09/23 17:33 Resp
== END 2023-11-09 18:39 | disposition home or self-care (01) ==
PROVIDERS: Emergency Provider Physician Assistant; PCP Internal Medicine
DX: S89.91XA Unspecified injury of right lower leg, initial encounter (principal); G35 Multiple sclerosis; Z87.891 Personal history of nicotine dependence; Z90.49 Acquired absence of other specified parts of digestive tract; X50.1XXA Overexertion from prolonged static or awkward postures, initial encounter
CPT/HCPCS: 73564; 99283

== ENCOUNTER 2023-11-27 09:07 | Outpatient (CLI) | payer OTHER, SELFPAY ==
[2023-11-27 20:53] LABS: Basophils Absolute Auto 0.1 K/mm3 (0.0-0.1); Basophils Percent Auto 0.6 % (0.2-1.2); Eosinophils Percent Auto 0.5 % (0-4.4); Hematocrit 39.8 % (37.0-47.0); Hemoglobin 13.1 g/dL (12.0-15.0); Immature Granulocyte Absolute 0.02 K/mm3 (0.00-0.031); Immature Granulocyte Percent A 0.3 % (0-0.5); Lymphocytes Absolute Auto 1.75 K/mm3 (0.9-3.2); Lymphocytes Percent Auto 22.4 % (18.3-44.2); Mean Corpuscular HGB Conc 32.9 g/dl (32-36); Mean Corpuscular Volume 88.2 fl (80-100); Mean Platelet Volume 11.2 fl (7.4-10.4); Monocytes Absolute Auto 0.4 K/mm3 (0.1-0.6); Monocytes Percent Auto 5.6 % (2.6-8.5); Neutrophils Absolute Auto 5.5 K/mm3 (1.3-6.7); Neutrophils Percent Auto 70.6 % (45.5-73.1); Platelet Count Result 278 k/mm3 (150-375); Red Blood Count 4.51 M/mm3 (4.2-5.4); Red Cell Distribution Width 13.3 % (11.5-14.5); White Blood Count 7.8 K/mm3 (4.5-10.0)
[2023-11-27 20:56] LABS: Iron 69 ug/dL (37-170)
[2023-11-27 21:06] LABS: Percent Iron Saturation 18 % (20-50)
[2023-11-27 21:06] LABS: Alanine Aminotransferase 17 U/L (6-35); Albumin Level 4.4 g/dL (3.5-5.1); Alkaline Phosphatase 59 U/L (38-126); Anion Gap 10 mmol/L (4-12); Aspartate Amino Transferase 28 U/L (14-36); Bilirubin,Total 0.7 mg/dL (0.2-1.3); Blood Urea Nitrogen 13 mg/dL (7-17); Calcium 9.5 mg/dL (8.4-10.2); Carbon Dioxide 24 mmol/L (22-30); Chloride 106 mmol/L (98-107); Cholesterol 152 mg/dL (0-200); Estimated Glomerular Filt Rate > 60; Glucose 83 mg/dL (65-110); HDL Direct 37 mg/dL; Magnesium 2.3 mg/dL (1.6-2.3); Potassium 4.1 mmol/L (3.4-5.0); Sodium 140 mmol/L (137-145); Triglycerides 112 mg/dL (<150)
[2023-11-27 21:23] LABS: LDL Cholesterol Direct 97 mg/dL
[2023-11-27 21:31] LABS: Ferritin 4.59 ng/mL (6.24-137)
[2023-11-27 22:50] LABS: Vitamin D 25 Hydroxy 18.7 ng/mL
[2023-12-02 14:24] LABS: Immunoglobulin A 86 mg/dL (47-310); TTG IGA AB <1.0 U/mL
== END 2023-11-27 09:08 | disposition home or self-care (01) ==
LOC: ANHGOSHLAB 09:09
PROVIDERS: PCP Nurse Practitioner Family; Visit Provider Nurse Practitioner Family
DX: D72.829 Elevated white blood cell count, unspecified (principal); E55.9 Vitamin D deficiency, unspecified; M62.838 Other muscle spasm; R73.01 Impaired fasting glucose; R56.9 Unspecified convulsions
CPT/HCPCS: 36415; 80053; 80061; 82306; 82728; 82784; 83036; 83540; 83550; 83735; 84443; 85025; 86364

== ENCOUNTER 2024-03-24 14:51 | Outpatient (CLI) | payer OTHER, SELFPAY ==
--- NOTE | ~2024-03-24 | MR_ITS ---
EXAMINATION: MR brain/brain stem wo/w con DATE: 03/24/2024 15:49 INDICATION: Multiple sclerosis. TECHNIQUE: Magnetic resonance imaging (MRI) of the brain and brainstem was performed without and with 20 mL MultiHance intravenous contrast. COMPARISON: Brain MRI 05/30/2017, head CT 09/11/2023 FINDINGS: There is no intracranial hemorrhage, acute infarction, or abnormal intracranial mass lesion . The ventricles are normal in size. The paranasal sinuses are clear. The orbits are normal. The mast oid air cells are normal. IMPRESSION: 1. Normal brain. Reviewed, dictated and finalized at location A. IMPRESSION: 1. Normal brain.
== END 2024-03-24 14:52 | disposition home or self-care (01) ==
LOC: MICIMG 14:51
PROVIDERS: PCP Nurse Practitioner Family; Visit Provider Nurse Practitioner Family
DX: G35 Multiple sclerosis (principal)
CPT/HCPCS: 70553; A9577

== ENCOUNTER 2024-05-11 00:27 | Day surgery (SDC) | payer OTHER, SELFPAY ==
[2024-04-30 13:26] VITALS: BMI 36.2
[2024-05-11 08:30] VITALS: BP 106/67; PULSE 81; RESP 18; TEMP 36.4; O2SAT 100; BMI 37.1
[2024-05-11] MEDS: LACTATED RINGERS 1,000 ML 150 ML IV CONT (08:56)
[2024-05-11 09:02] LABS: BEDSIDEPREGUCG Negative (Negative)
--- NOTE | 2024-05-11 09:09 | WPDANESEPPF ---
Anes - Initial Pre Proc Eval Procedure: Operation Date: 05/11/24 10:00 Proposed Procedures p Esophagogastroduodenoscopy - Darrian Barone MD Date/Time: 05/11/24 09:09 Surgeon: Darrian Barone MD Pre Op Diagnosis: Upper Abd Pain & Abd distension Patient Data Age: 34 Gender: F Height: 1.7 m Weight: 107.7 kg Last Vital Signs Temp 36.4 C 05/11/24 08:30 Pulse 81 05/11/24 08:30 Resp 18 05/11/24 08:30 BP 106/67 05/11/24 08:30 Pulse Ox 100 05/11/24 08:30 O2 Del Method Room Air 05/11/24 08:30 Allergies Allergy/AdvReac Type Severity Reaction Status Date / Time pineapple Allergy Severe Anaphylactic Verified 04/30/24 13:24 Shock ubrogepant [From Ubrelvy] Allergy Intermediate Nausea and Verified 04/30/24 13:24 Vomiting ceftriaxone Allergy Unknown Rash Verified 04/30/24 13:24 Cephalosporins Allergy Unknown Rash Verified 04/30/24 13:24 codeine Allergy Unknown Hallucinati Verified 04/30/24 13:24 ng morphine Allergy Unknown Hallucinati Verified 04/30/24 13:24 ng shellfish derived Allergy Unknown Rash Verified 04/30/24 13:24 Sulfa (Sulfonamide Allergy Unknown Rash Verified 04/30/24 13:24 Antibiotics) Home Medications Medication Instructions Recorded Confirmed Type cholecalciferol (vitamin D3) 25 25 mcg PO DAILY 11/28/23 04/30/24 History mcg (1,000 unit) capsule ferrous sulfate 325 mg (65 mg 325 mg PO DAILY 11/28/23 04/30/24 History iron) tablet (Feosol) diclofenac sodium 3 % topical gel 1 applic topical BID #100 grams 03/13/24 04/30/24 Rx methocarbamol 750 mg tablet 750 mg PO TID PRN muscle spasm #90 04/06/24 04/30/24 Rx tabs pregabalin 25 mg capsule (Lyrica) 25 mg PO BID #60 caps 04/06/24 04/30/24 Rx propranolol 60 mg capsule,24 60 mg PO DAILY #90 caps 04/06/24 04/30/24 Rx hr,extended release rizatriptan 10 mg disintegrating See Rx Instructions PO .COMPLEX 04/06/24 04/30/24 Rx tablet (Maxalt-4 H YOUTH DEVELOPMENT SPECIALIST) #14 tabs sucralfate 1 gram tablet (Carafate) 1 g PO TID PRN abdominal pain #30 04/06/24 04/30/24 Rx tabs esomeprazole magnesium 40 mg 40 mg PO DAILY #90 caps 04/09/24 04/30/24 Rx capsule,delayed release (Nexium) lidocaine HCl 2 % mucosal solution 5 ml mucous membrane BID PRN pain 04/15/24 04/30/24 Rx (Lidocaine Viscous) #100 mL Laboratory Tests 05/11/24 08:59 POC Urine HCG, Qual Negative (Negative) Patient hx anesthesia problems: none Family hx anesthesia problems: none Results Review: All pre-operative results and documents have been reviewed as part of the pre-operative evaluation. [facility] Past Medical History Medical History Closed fracture of coccyx Frequent headaches Herniated disc Low back pain Multiple sclerosis Surgical History Surgical History H/O tubal ligation History of delivery x3 History of D&C Status post laparoscopic cholecystectomy Family History Family History Father Depression Anxiety Alcohol abuse Drug abuse Mother Cancer Anxiety Depression Drug abuse Sibling Alcohol abuse Drug abuse Grandparent Alcohol abuse Cancer Diabetes mellitus Heart disease Depression Dementia Acute pancreatitis Colon polyp Social History Social History Smoking packs per day: 1 Smoking cigarettes per day: 20.0 Years smoked: 10 Smoking pack-years: 10.00 Smoking status: Former smoker Tobacco type: cigarettes Alcohol intake: never Substance use: never Substance use type: does not use Do You Feel Safe in your Home?: Yes Lack of Transportation: No Lack of Food: Never True Current Housing: I Have Housing Concerned About Future Housing: No Difficulty Paying Gas/Electric Bills: No Difficulty Paying for Meds: No Currently Unemployed
--- NOTE | 2024-05-11 10:03 | PM.IMHP ---
H&P: HPI History of Present Illness Date/Time: 05/11/24 10:03 Chief Complaint: Chronic epigastric pain Narrative: this patient has been suffering from sharp epigastric pain, recurrent. There is partial response to proton pump inhibitors. Here for EGD. Review of Systems Review of Systems: All systems reviewed & are unremarkable except as noted in HPI and below PMFSH Past Medical History Medical History Closed fracture of coccyx Frequent headaches Herniated disc Low back pain Multiple sclerosis Surgical History Surgical History H/O tubal ligation History of delivery x3 History of D&C Status post laparoscopic cholecystectomy Family History Family History Father Depression Anxiety Alcohol abuse Drug abuse Mother Cancer Anxiety Depression Drug abuse Sibling Alcohol abuse Drug abuse Grandparent Alcohol abuse Cancer Diabetes mellitus Heart disease Depression Dementia Acute pancreatitis Colon polyp Social History Social History Smoking packs per day: 1 Smoking cigarettes per day: 20.0 Years smoked: 10 Smoking pack-years: 10.00 Smoking status: Former smoker Tobacco type: cigarettes Alcohol intake: never Substance use: never Substance use type: does not use Do You Feel Safe in your Home?: Yes Lack of Transportation: No Lack of Food: Never True Current Housing: I Have Housing Concerned About Future Housing: No Difficulty Paying Gas/Electric Bills: No Difficulty Paying for Meds: No Currently Unemployed: No Education: High School Diploma/GED Difficulty w/ Childcare or Family Care: No Living arrangements: with family Gender identity (if verbalized by the patient): Female Sexual Orientation (if Verbalized by the Patient): Straight or Heterosexual Spiritual care concerns: No Agree to blood products: Yes Meds Home Medications and Allergies Home Medications Medication Instructions Recorded Confirmed Type cholecalciferol (vitamin D3) 25 25 mcg PO DAILY 11/28/23 04/30/24 History mcg (1,000 unit) capsule ferrous sulfate 325 mg (65 mg 325 mg PO DAILY 11/28/23 04/30/24 History iron) tablet (Feosol) diclofenac sodium 3 % topical gel 1 applic topical BID #100 grams 03/13/24 04/30/24 Rx methocarbamol 750 mg tablet 750 mg PO TID PRN muscle spasm #90 04/06/24 04/30/24 Rx tabs pregabalin 25 mg capsule (Lyrica) 25 mg PO BID #60 caps 04/06/24 04/30/24 Rx propranolol 60 mg capsule,24 60 mg PO DAILY #90 caps 04/06/24 04/30/24 Rx hr,extended release rizatriptan 10 mg disintegrating See Rx Instructions PO .COMPLEX 04/06/24 04/30/24 Rx tablet (Maxalt-FIELD SERVICE REPRESENTATIVE) #14 tabs sucralfate 1 gram tablet (Carafate) 1 g PO TID PRN abdominal pain #30 04/06/24 04/30/24 Rx tabs esomeprazole magnesium 40 mg 40 mg PO DAILY #90 caps 04/09/24 04/30/24 Rx capsule,delayed release (Nexium) lidocaine HCl 2 % mucosal solution 5 ml mucous membrane BID PRN pain 04/15/24 04/30/24 Rx (Lidocaine Viscous) #100 mL Allergies Allergy/AdvReac Type Severity Reaction Status Date / Time pineapple Allergy Severe Anaphylactic Verified 04/30/24 13:24 Shock ubrogepant [From Ubrelvy] Allergy Intermediate Nausea and Verified 04/30/24 13:24 Vomiting ceftriaxone Allergy Unknown Rash Verified 04/30/24 13:24 Cephalosporins Allergy Unknown Rash Verified 04/30/24 13:24 codeine Allergy Unknown Hallucinati Verified 04/30/24 13:24 ng morphine Allergy Unknown Hallucinati Verified 04/30/24 13:24 ng shellfish derived Allergy Unknown Rash Verified 04/30/24 13:24 Sulfa (Sulfonamide Allergy Unknown Rash Verified 04/30/24 13:24 Antibiotics) Vital Signs Vital Signs - 24 hr 05/11/24 08:30 Temperature 97.6 F Pulse Rate 81 Resp
[2024-05-11 10:14] VITALS: BP 102/64; PULSE 74; RESP 18; O2SAT 99
[2024-05-11 10:24] VITALS: BP 105/66; PULSE 70; RESP 14; O2SAT 100
[2024-05-11 10:34] VITALS: BP 105/69; PULSE 60; RESP 14; O2SAT 100
== END 2024-05-11 10:58 | disposition home or self-care (01) ==
PROVIDERS: Anesthesiology; PCP Nurse Practitioner Family; Referring Provider Nurse Practitioner Family; Visit Provider Internal Medicine Gastroenterology
PROC: 0DJ08ZZ Inspection of Upper Intestinal Tract, Via Natural or Artificial Opening Endoscopic (ICD-10-PCS; CPT 43235; principal; 2024-05-11 10:00)
DX: K29.50 Unspecified chronic gastritis without bleeding (principal); G35 Multiple sclerosis; E66.9 Obesity, unspecified; Z68.37 Body mass index [BMI] 37.0-37.9, adult; Z98.890 Other specified postprocedural states; Z90.49 Acquired absence of other specified parts of digestive tract; Z98.51 Tubal ligation status; Z87.891 Personal history of nicotine dependence; Z80.9 Family history of malignant neoplasm, unspecified; Z82.49 Family history of ischemic heart disease and other diseases of the circulatory system
CPT/HCPCS: 43239; 88305; J2003; J2704; J7120

== ENCOUNTER 2024-06-08 14:05 | Emergency (ER) | payer OTHER, SELFPAY ==
--- NOTE | ~2024-06-08 | XR_ITS ---
XR chest 2V Ordering provider: Ramón Salinas MD History: 34 years Female with . 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 Comparison: None. FINDINGS: MEDIASTINUM: The cardiac silhouette is not enlarged. LUNGS: No infiltrates, effusions or pneumothorax. OTHER: No free air under the diaphragm. IMPRESSION: No acute cardiopulmonary pathology. Reviewed, dictated and finalized at location A. RITY MOTHER
--- NOTE | 2024-06-08 14:06 | ECG_ITS ---
Test Date: 2024-06-08 14:10:24 Measurements Intervals [place] Rate: 69 P: 16 [place]: 129 QRS: 29 QRSD: 89 T: 38 QT: 388 QTc: 418 Interpretive Statements SINUS RHYTHM NORMAL ECG No previous ECG available for comparison Electronically Signed On 06-08-2024 14:13:15 TRACK LAYING EQUIPMENT OPERATOR by Tyler Melgoza D.O.
[2024-06-08 14:07] VITALS: BP 128/87; PULSE 76; RESP 17; TEMP 36.4; O2SAT 100
[2024-06-08 14:42] LABS: Basophils Absolute Auto 0.1 K/mm3 (0.0-0.1); Basophils Percent Auto 0.6 % (0.2-1.2); Eosinophils Absolute Auto 0.1 K/mm3 (0-0.3); Eosinophils Percent Auto 0.9 % (0-4.4); Hematocrit 38.7 % (37.0-47.0); Hemoglobin 12.7 g/dL (12.0-15.0); Immature Granulocyte Absolute 0.04 K/mm3 (0.00-0.031); Immature Granulocyte Percent A 0.3 % (0-0.5); Lymphocytes Absolute Auto 3.45 K/mm3 (0.9-3.2); Lymphocytes Percent Auto 28.6 % (18.3-44.2); Mean Corpuscular HGB Conc 32.8 g/dl (32-36); Mean Corpuscular Hemoglobin 27.8 pg (26-34); Mean Corpuscular Volume 84.7 fl (80-100); Mean Platelet Volume 10.1 fl (7.4-10.4); Monocytes Absolute Auto 0.7 K/mm3 (0.1-0.6); Monocytes Percent Auto 6.1 % (2.6-8.5); Neutrophils Absolute Auto 7.7 K/mm3 (1.3-6.7); Neutrophils Percent Auto 63.5 % (45.5-73.1); Platelet Count Result 373 k/mm3 (150-375); Red Blood Count 4.57 M/mm3 (4.2-5.4); Red Cell Distribution Width 12.8 % (11.5-14.5); White Blood Count 12.1 K/mm3 (4.5-10.0)
[2024-06-08 14:53] LABS: Alanine Aminotransferase 23 U/L (6-35); Albumin Level 4.4 g/dL (3.5-5.1); Alkaline Phosphatase 65 U/L (38-126); Anion Gap 9 mmol/L (4-12); Aspartate Amino Transferase 27 U/L (14-36); Bilirubin,Total 0.4 mg/dL (0.2-1.3); Blood Urea Nitrogen 16 mg/dL (7-17); Carbon Dioxide 24 mmol/L (22-30); Chloride 105 mmol/L (98-107); Estimated CRCL calculation 121 ml/min; Estimated Glomerular Filt Rate > 60; Glucose 85 mg/dL (65-110); Lipase 104 U/L (23-300); Potassium 3.9 mmol/L (3.4-5.0); Sodium 138 mmol/L (137-145)
[2024-06-08 14:58] LABS: Prothrombin Time 13.9 Seconds (11.1-14.7)
[2024-06-08 14:59] LABS: Partial Thromboplastin Time 35.1 Seconds (22.3-36.8)
[2024-06-08 15:05] LABS: Troponin I < 0.012 ng/mL (0.000-0.034)
--- NOTE | 2024-06-08 15:32 | ED.CHESTPAIN ---
HPI - Chest Pain General Chief Complaint: Chest Pain Stated Complaint: chest pain, abdominal pain Related Data Home Medications Medication Instructions Recorded Confirmed cholecalciferol (vitamin D3) 25 25 mcg PO DAILY 11/28/23 05/12/24 mcg (1,000 unit) capsule ferrous sulfate 325 mg (65 mg 325 mg PO DAILY 11/28/23 05/12/24 iron) tablet (Feosol) Allergies Allergy/AdvReac Type Severity Reaction Status Date / Time pineapple Allergy Severe Anaphylactic Verified 06/08/24 15:22 Shock ubrogepant [From Ubrelvy] Allergy Intermediate Nausea and Verified 06/08/24 15:22 Vomiting ceftriaxone Allergy Unknown Rash Verified 06/08/24 15:22 Cephalosporins Allergy Unknown Rash Verified 06/08/24 15:22 codeine Allergy Unknown Hallucinati Verified 06/08/24 15:22 ng morphine Allergy Unknown Hallucinati Verified 06/08/24 15:22 ng shellfish derived Allergy Unknown Rash Verified 06/08/24 15:22 Sulfa (Sulfonamide Allergy Unknown Rash Verified 06/08/24 15:22 Antibiotics) [facility] Past Medical History Medical History Closed fracture of coccyx Frequent headaches Herniated disc Low back pain Multiple sclerosis Surgical History Surgical History H/O tubal ligation History of delivery x3 History of D&C Status post laparoscopic cholecystectomy Family History Family History Father Depression Anxiety Alcohol abuse Drug abuse Mother Cancer Anxiety Depression Drug abuse Sibling Alcohol abuse Drug abuse Grandparent Alcohol abuse Cancer Diabetes mellitus Heart disease Depression Dementia Acute pancreatitis Colon polyp Social History Social History Smoking packs per day: 1 Smoking cigarettes per day: 20.0 Years smoked: 10 Smoking pack-years: 10.00 Smoking status: Former smoker Tobacco type: cigarettes Alcohol intake: never Substance use: never Substance use type: does not use Do You Feel Safe in your Home?: Yes Lack of Transportation: No Lack of Food: Never True Current Housing: I Have Housing Concerned About Future Housing: No Difficulty Paying Gas/Electric Bills: No Difficulty Paying for Meds: No Currently Unemployed: No Education: High School Diploma/GED Difficulty w/ Childcare or Family Care: No Living arrangements: with family Gender identity (if verbalized by the patient): Female Sexual Orientation (if Verbalized by the Patient): Straight or Heterosexual Spiritual care concerns: No Agree to blood products: Yes Course Vital Signs Vital signs: Vital Signs Temperature 97.5 F L 06/08/24 14:07 Pulse Rate 76 06/08/24 14:07 Respiratory Rate 17 06/08/24 14:07 Blood Pressure 128/87 06/08/24 14:07 Pulse Oximetry 100 06/08/24 14:07 Oxygen Delivery Room Air 06/08/24 14:07 Temperature 97.5 F L 06/08/24 14:07 Pulse Rate 76 06/08/24 14:07 Respiratory Rate 17 06/08/24 14:07 Blood Pressure 128/87 06/08/24 14:07 Pulse Oximetry 100 06/08/24 14:07 Oxygen Delivery Room Air 06/08/24 14:07 MDM - Chest Pain Lab Data 06/08/24 14:13 06/08/24 14:13 Labs: Lab Results 06/08/24 Range/Units 14:13 WBC 12.1 H (4.5-10.0) K/mm3 RBC 4.57 (4.2-5.4) M/mm3 Hgb 12.7 (12.0-15.0) g/dL Hct 38.7 (37.0-47.0) % MCV 84.7 (80-100) fl MCH 27.8 (26-34) pg MCHC 32.8 (32-36) g/dl RDW 12.8 (11.5-14.5) % Plt Count 373 (150-375) k/mm3 MPV 10.1 (7.4-10.4) fl Immature Gran % (Auto) 0.3 (0-0.5) % Neut % (Auto) 63.5 (45.5-73.1) % Lymph % (Auto) 28.6 (18.3-44.2) % Edgar % (Auto) 6.1 (2.6-8.5) % Eos % (Auto) 0.9 (0-4.4) % Baso % (Auto) 0.6 (0.2-1.2) % Lymph # (Auto) 3.45 H (0.9-3.2) K/mm3 Edgar # (Auto) 0.7 H (0.1-0.6) K/mm3 Eos # (Auto) 0.1 (0-0.3) K/mm3 Baso # (Auto) 0.1 (0.0-0.1) K/mm3 Abs Immat Gran (auto) 0.04 H (0.00-0.031) K/mm3 Absolute Neuts (auto) 7.7 H (1.3-6.7) K/mm3 Absolute Nucleated RBC 0.000 (0.0-0.012) K/mm3 Nucleated RBC % 0.0 (0.0-0.2) % PT 13.9 (11.1-14.7) Seconds INR 1.0 APTT 35.1 (22.3-36.8) Seconds Sodium 138 (137-145) mmol/L Potassium 3.9 (3.4-5.0) mmol/L Chloride 105 (98-107) mmol/L Carbon Dioxide 24 (22-30) mmol/L Anion Gap 9 (4-12) mmol/L BUN 16 (7-17) mg/dL Creatinine 0.70 (0.7-1.0) mg/dL Estim Creat Clear Calc 121 ml/min Estimated GFR > 60 (59 - ) Glucose 85 (65-110) mg/dL Calcium 9.0 (8.4-10.2) mg/dL Total Bilirubin 0.4 (0.2-1.3) mg/dL AST 27 (14-36) U/L ALT 23 (6-35) U/L Alkaline Phosphatase 65 (38-126) U/L Troponin I < 0.012 (0.000-0.034) ng/mL Total Protein 8.0 (6.3-8.2) g/dL Albumin 4.4 (3.5-5.1) g/dL Lipase 104 (23-300) U/L Discharge Plan Discharge Prescriptions: No Action diclofenac sodium 3 % gel 1 applic topical BID Qty: 100 0RF ferrous sulfate [Feosol] 325 mg (65 mg iron) tablet 325 mg PO DAILY cholecalciferol (vitamin D3) 25 mcg (1,000 unit) capsule 25 mcg PO DAILY methocarbamol 750 mg tablet 750 mg PO TID PRN (Reason: muscle spasm) Qty: 90 3RF pregabalin [Lyrica] 25 mg capsule 25 mg PO BID Qty: 60 2RF propranolol 60 mg capsule,extended release 24 hr 60 mg PO DAILY Qty: 90 2RF rizatriptan [Maxalt-PASSENGER ELEVATOR OPERATOR] 10 mg tablet,disintegrating See Rx Instructions PO .COMPLEX Qty: 14 5RF Rx Instructions: take 1 tab at onset of headache; if no relief may repeat 1 tab after at least 2 hrs; max = 3 tabs/24 hr PO sucralfate [Carafate] 1 gram tablet 1 g PO TID PRN (Reason: abdominal pain) Qty: 30 3RF esomeprazole magnesium [Nexium] 40 mg capsule,delayed release(DR/EC) 40 mg PO DAILY Qty: 90 0RF lidocaine HCl [Lidocaine Viscous] 2 % solution 5 ml mucous membrane BID PRN (Reason: pain) Qty: 100 0RF Follow-up/Referrals: Cora Moulton, N[employer]EL[employer] MAKER-[facility] [Primary Care Provider] -
--- NOTE | 2024-06-08 15:34 | PC.NURSE ---
EDP called for pt for MSE, no response
[2024-06-08 16:54] LABS: D Dimer 0.35 ug/mL (<0.48)
== END 2024-06-08 16:39 | disposition left against medical advice (07) ==
PROVIDERS: Emergency Medicine; Emergency Provider Physician Assistant; PCP Nurse Practitioner Family
DX: R07.2 Precordial pain (principal)
CPT/HCPCS: 36415; 71046; 80053; 83690; 84484; 85025; 85380; 85610; 85730; 93005; 99199

== ENCOUNTER 2024-09-08 08:02 | Outpatient (CLI) | payer OTHER, SELFPAY ==
--- NOTE | ~2024-09-08 | MMUS_ITS ---
EXAMINATION: US breast LT limited, MM diagnostic rebeka BI w bhaskar HISTORY: Palpable left breast lump TECHNIQUE: Additional 3-D tomosynthesis images of the left breast were performed and synthetic 2-D im ages were generated. CAD analysis was submitted and interpreted. High resolution Limited left breast ultrasound was performed. COMPARISON: None BREAST PARENCHYMAL COMPOSITION: Not dense: There are scattered areas of fibroglandular density. FINDINGS: MAMMOGRAPHIC FINDINGS: There are asymmetries in the left breast in the medial aspect in the periareolar location, although n o discrete mass or focal areas of architectural distortion are identified. There are no suspicious ca lcifications. No mammographic evidence for malignancy in the right breast. ULTRASOUND: Limited left breast ultrasound: Normal heterogeneous echotexture without focal solid or cystic mass. IMPRESSION: 1. Probable benign left breast asymmetries. No sonographic correlate. 2. Recommend 6 month follow-up diagnostic left mammogram. BI-RADS category 3, probably benign findings. Reviewed, dictated and finalized at location B. OL BUS DISPATCHER IMPRESSION: 1. Probable benign left breast asymmetries. No sonographic correlate. 2. Recommend 6 month follow-up diagnostic left mammogram. BI-RADS category 3, probably benign findings.
== END 2024-09-08 08:03 | disposition home or self-care (01) ==
LOC: MICIMG 08:02
PROVIDERS: PCP Nurse Practitioner Family; Visit Provider Nurse Practitioner Family
DX: R92.8 Other abnormal and inconclusive findings on diagnostic imaging of breast (principal); N63.20 Unspecified lump in the left breast, unspecified quadrant
CPT/HCPCS: 76642; 77062; 77066; G0279

== ENCOUNTER 2025-06-01 07:55 | Outpatient (CLI) | payer OTHER, SELFPAY ==
--- NOTE | ~2025-06-01 | MMUS_ITS ---
EXAMINATION: MM diagnostic rebeka BI w bhaskar, US breast LT limited HISTORY: Palpable left breast lump TECHNIQUE: Additional 3-D tomosynthesis images of the left breast were performed and synthetic 2-D images were generated. CAD analysis was submitted and interpreted. High resolution Limited left breast ultrasound was performed. COMPARISON: 09/08/2024 BREAST PARENCHYMAL COMPOSITION: Not dense: There are scattered areas of fibroglandular density. FINDINGS: MAMMOGRAPHIC FINDINGS: There are no suspicious masses, calcifications or architectural distortion in either breast to suggest malignancy. ULTRASOUND: Limited left breast ultrasound: Normal heterogeneous echotexture without focal solid or cystic mass. IMPRESSION: 1. No evidence for malignancy in either breast. 2. Routine yearly screening mammogram and regular clinical breast examination are recommended. BI-RADS Category 1: Negative Reviewed, dictated and finalized at location C. OGRAPHER IMPRESSION: 1. No evidence for malignancy in either breast. 2. Routine yearly screening mammogram and regular clinical breast examination a re recommended. BI-RADS Category 1: Negative
== END 2025-06-01 07:56 | disposition home or self-care (01) ==
LOC: MICIMG 07:56
PROVIDERS: PCP Nurse Practitioner Family; Visit Provider Nurse Practitioner Family
DX: N63.20 Unspecified lump in the left breast, unspecified quadrant (principal)
CPT/HCPCS: 76642; 77062; 77066; G0279